=== PATIENT | female | born 1945 | race Caucasian/White ===

== ENCOUNTER 2017-01-13 13:03 | Outpatient (CLI) | payer MEDICARE ==
--- NOTE | 2017-01-14 13:54 | DEXA Report ---
DEXA SCAN: 01/13/2017 CLINICAL INDICATION: Postmenopausal. TECHNIQUE: Dual energy x-ray absorptiometry (DXA) was performed on a [employer] system. Regions measured are the AP spine, femoral neck, and, if needed, forearm. COMPARISON: None. In accordance with the International Society for Clinical Densitometry (ISCD) guidelines, data from previous exams may be reanalyzed using current recommendations and techniques. This is done to allow a more accurate basis for comparison with the current study. FINDINGS: The data for the lumbar spine is as follows: REGION BMD (g/cm/cm) T-SCORE Z-SCORE L1 0.623 -4.2 -2.2 L2 0.918 -2.4 -0.3 L3 0.954 -2.1 0.0 L4 1.102 -0.8 1.2 TOTAL 0.908 -2.3 -0.2 NOTE: All evaluable vertebrae are used for classification. The data for the hip is as follows: REGION BMD (g/cm/cm) T-SCORE Z-SCORE Neck 0.737 -2.2 -0.2 TOTAL 0.761 -2.0 -0.2 NOTE: The femoral neck or total proximal femur, whichever is lowest, is used for classification. * Denotes significant change at the 95% confidence level. Denotes dissimilar scan types or analysis methods. IMPRESSION: THE WHO CLASSIFICATION BASED ON THE INTERNATIONAL REFERENCE STANDARD IS OSTEOPENIA. THE FRACTURE RISK IS INCREASED. RECOMMENDATION: Patients with diagnosis of osteoporosis or osteopenia should have regular bone mineral density assessment. For those eligible for Medicare, routine testing is allowed once every 2 years. Testing frequency can be increased for patients who have rapidly progressing disease or for those who are receiving medical therapy to restore bone mass. COMMENT: World Health Organization (WHO) definitions for osteoporosis and osteopenia: NORMAL BMD: T-score at -1.0 or higher, fracture risk is low. OSTEOPENIA BMD: T-score between -1.0 and -2.5, fracture risk is increased. OSTEOPOROSIS BMD: T-score at -2.5 or lower, fracture risk high. National Osteoporosis Foundation recommends: 1. Obtain adequate dietary calcium (at least 1200 mg per day) and vitamin D (400 -800 international units per day). 2. Participate, as appropriate, in regular weightbearing and muscle- strengthening exercise. 3. Avoid tobacco use and reduce alcohol and caffeine intake. 4. For more detailed information see the website at www.NOF.org. MTDD
== END 2017-01-13 13:04 | disposition home or self-care (01) ==
LOC: DI 13:03
PROVIDERS: ATTEND Internal Medicine
DX: M85.89 Other specified disorders of bone density and structure, multiple sites (principal); Z78.0 Asymptomatic menopausal state
CPT/HCPCS: 77080

== ENCOUNTER 2017-02-12 08:00 | Outpatient (CLI) | payer MEDICARE ==
[2017-02-12 13:27] LABS: ALBUMIN/GLOBULIN RATIO 1.7 (1.0-2.2); BILIRUBIN,TOTAL 1.1 mg/dL (0.2-1.0); CALCIUM 9.2 mg/dL (8.5-10.3); CREATININE 0.6 mg/dL (0.4-1.0); PHOSPHORUS 3.1 mg/dL (2.5-4.6); POTASSIUM 3.7 mmol/L (3.5-5.0); TOTAL PROTEIN 6.7 g/dL (6.7-8.2)
== END 2017-02-12 08:01 | disposition home or self-care (01) ==
LOC: LAB.N 08:00
PROVIDERS: ATTEND Internal Medicine
DX: M81.0 Age-related osteoporosis without current pathological fracture (principal); Z72.89 Other problems related to lifestyle
CPT/HCPCS: 36415; 80053; 82306; 84100; 84443; 86803

== ENCOUNTER 2017-03-10 13:33 | Outpatient (CLI) | payer MEDICARE ==
--- NOTE | 2017-03-11 15:53 | Mammography Report ---
DIGITAL SCREENING MAMMOGRAM: 03/10/2017 CLINICAL INDICATION: A 71-year-old, for screening. COMPARISON: 02/2014, 02/2011, 07/2009, 05/2008. TECHNIQUE: Routine CC and MLO projections were obtained of the breasts. Bilateral laterally exaggera brandon craniocaudal views. FINDINGS: The breasts again demonstrate heterogeneously dense fibroglandular parenchyma bilaterally. Punctate, typically benign calcifications are present. No suspicious masses, clustered microcalcific ations, or regions of architectural distortion are identified. IMPRESSION: BENIGN FINDINGS. RECOMMENDATION: ROUTINE ANNUAL SCREENING UNLESS OTHERWISE CLINICALLY INDICATED. BIRADS CATEGORY 2-BENIGN FINDINGS. STANDARD QUALIFYING STATEMENTS 1. This examination was reviewed with the aid of Computer-Aided Detection (CAD). 2. A negative or benign imaging report should not delay biopsy if clinically suspicious findings are present. Consider surgical consultation if warranted. More than 5% of cancers are not identified by i maging. 3. Dense breasts may obscure an underlying neoplasm. JOB #: [id number] EXT JOB #:[id number]
== END 2017-03-10 13:34 | disposition home or self-care (01) ==
LOC: DI.N 13:33
PROVIDERS: ATTEND Internal Medicine
DX: Z12.31 Encounter for screening mammogram for malignant neoplasm of breast (principal)
CPT/HCPCS: 77067

== ENCOUNTER 2018-05-21 17:15 | Outpatient (CLI) | payer MEDICARE | END 2018-05-21 17:16 | disposition critical access hospital (66) | LOC: EMS 17:15 | PROVIDERS: ATTEND Surgery | DX: R06.02 Shortness of breath (principal); R42 Dizziness and giddiness; L29.9 Pruritus, unspecified; W57.XXXA Bitten or stung by nonvenomous insect and other nonvenomous arthropods, initial encounter; Y92.007 Garden or yard of unspecified non-institutional (private) residence as the place of occurrence of the external cause | CPT/HCPCS: A0425; A0433 ==

== ENCOUNTER 2018-05-21 17:29 | Emergency (ER) | payer MEDICARE ==
[2018-05-21] MEDS ORDERED: SODIUM CHLORIDE 0.9% 1,000 ML IV ONE (17:39)
[2018-05-21] MEDS ORDERED: diphenhydrAMINE INJ 50 MG/ML VIAL IVP STA (17:39)
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
[2018-05-21 18:23] LABS: BASOPHILS % (AUTO) 0.5 %; EOSINOPHILS # (AUTO) 0.1 10^3/uL (0.0-0.7); EOSINOPHILS % (AUTO) 0.7 %; LYMPHOCYTES # (AUTO) 2.3 10^3/uL (1.5-3.5); LYMPHOCYTES % (AUTO) 29.3 %; MEAN CORPUSCULAR HEMOGLOBIN 33.9 pg (27.0-31.0); MEAN CORPUSCULAR HGB CONC 34.6 g/dL (32.0-36.0); MEAN CORPUSCULAR VOLUME 98.1 fL (81.0-99.0); MEAN PLATELET VOLUME 7.3 fL (7.9-10.8); MONOCYTES # (AUTO) 0.2 10^3/uL (0.0-1.0); MONOCYTES % (AUTO) 2.1 %; NEUTROPHILS # (AUTO) 5.3 10^3/uL (1.5-6.6); NEUTROPHILS % (AUTO) 67.4 %; PLT - PLATELET COUNT 276 10^3/uL (130-450); RED BLOOD COUNT 3.24 10^6/uL (4.20-5.40); RED CELL DISTRIBUTION WIDTH 13.6 % (12.0-15.0); WHITE BLOOD COUNT 7.8 x10^3/uL (4.8-10.8)
[2018-05-21 18:45] LABS: ALBUMIN 3.5 g/dL (3.2-5.5); ALBUMIN/GLOBULIN RATIO 1.9 (1.0-2.2); BILIRUBIN,TOTAL 0.3 mg/dL (0.2-1.0); CALCIUM 8.1 mg/dL (8.5-10.3); CREATININE 0.9 mg/dL (0.4-1.0); TOTAL PROTEIN 5.3 g/dL (6.7-8.2)
[2018-05-21 20:39] VITALS: BP 132/78
== END 2018-05-21 21:30 | disposition home or self-care (01) ==
LOC: EDUNIT# → ED 17:29
DX: T63.441A Toxic effect of venom of bees, accidental (unintentional), initial encounter (principal); I45.81 Long QT syndrome; Z96.659 Presence of unspecified artificial knee joint
CPT/HCPCS: 36415; 80053; 83690; 85025; 93005; 96361; 96374; 99284; 99291; J1200

== ENCOUNTER 2018-08-25 08:00 | Outpatient (CLI) | payer MEDICARE ==
[2018-08-25 12:44] LABS: BASOPHILS % (AUTO) 1.1 %; EOSINOPHILS # (AUTO) 0.3 10^3/uL (0.0-0.7); EOSINOPHILS % (AUTO) 8.7 %; HGB - HEMOGLOBIN 12.1 g/dL (12.0-16.0); LYMPHOCYTES # (AUTO) 1.1 10^3/uL (1.5-3.5); MEAN CORPUSCULAR HEMOGLOBIN 32.6 pg (27.0-31.0); MEAN CORPUSCULAR HGB CONC 33.7 g/dL (32.0-36.0); MEAN CORPUSCULAR VOLUME 96.7 fL (81.0-99.0); MEAN PLATELET VOLUME 7.3 fL (7.9-10.8); MEAN RETIC VALUE 125.4; MONOCYTES # (AUTO) 0.5 10^3/uL (0.0-1.0); MONOCYTES % (AUTO) 13.3 %; NEUTROPHILS # (AUTO) 1.6 10^3/uL (1.5-6.6); NEUTROPHILS % (AUTO) 46.9 %; PLT - PLATELET COUNT 397 10^3/uL (130-450); RED CELL DISTRIBUTION WIDTH 14.1 % (12.0-15.0); WHITE BLOOD COUNT 3.5 x10^3/uL (4.8-10.8)
[2018-08-25 13:18] LABS: ALKALINE PHOSPHATASE 57 IU/L (42-121); ALT ALANINE AMINOTRANSFERASE 16 IU/L (10-60); AST ASPARTATE AMINOTRANSFERASE 22 IU/L (10-42); BILIRUBIN,TOTAL 0.7 mg/dL (0.2-1.0); BUN - BLOOD UREA NITROGEN 15 mg/dL (6-20); CALCIUM 8.8 mg/dL (8.5-10.3); CARBON DIOXIDE - CO2 28 mmol/L (21-32); CHLORIDE 104 mmol/L (101-111); CREATININE 0.6 mg/dL (0.4-1.0); GFR - MDRD 98 (>89); GLUCOSE 86 mg/dL (70-100); MAGNESIUM 2.1 mg/dL (1.7-2.8); SODIUM 137 mmol/L (135-145); TOTAL PROTEIN 6.3 g/dL (6.7-8.2)
[2018-08-25 13:19] LABS: ALBUMIN/GLOBULIN RATIO 1.7 (1.0-2.2); CHOL/HDL RATIO 2.1 (<4.4); CHOLESTEROL 190 mg/dL; HDL CHOLESTEROL 89 mg/dL; LDL CHOLESTEROL,CALCULATED 89 mg/dL; VLDL CHOLESTEROL 12 mg/dL
[2018-08-25 13:25] LABS: FOLATE 11.2 ng/mL (5.90 - >24.8)
== END 2018-08-25 23:59 | disposition home or self-care (01) ==
LOC: LAB.N 08:00
PROVIDERS: ATTEND Physician Assistant Medical
DX: E55.9 Vitamin D deficiency, unspecified (principal); D64.9 Anemia, unspecified; Z79.899 Other long term (current) drug therapy
CPT/HCPCS: 36415; 80053; 80061; 82306; 82607; 82728; 82746; 83010; 83721; 83735; 85025; 85044; 86880

== ENCOUNTER 2019-05-11 13:39 | Outpatient (CLI) | payer MEDICARE ==
--- NOTE | 2019-05-11 16:50 | Mammography Report ---
Reason: SCREENING MAMMO Procedure Date: 05/11/2019 Accession Number: [id number] / [id number] Procedure: MGN - Screening Mammo Dig Bilat CPT Code: FULL RESULT: EXAM: Screening Mammo Dig Bilat DATE: 05/11/2019 1:56 PM CLINICAL HISTORY: Screening TECHNIQUE: (B) - Bilateral CC and MLO views were obtained. COMPARISON: 03/10/2017, 02/08/2014 PARENCHYMAL PATTERN: (VD) - The breasts demonstrate extremely dense parenchyma bilaterally, limiting the sensitivity of mammography. FINDINGS: There are no suspicious masses, calcifications, or areas of distortion. IMPRESSION: Negative examination. BI-RADS category 1. RECOMMENDATION: (ANNUAL) - Recommend routine annual screening mammography. BI-RADS CATEGORY: (1) - Negative. STANDARD QUALIFYING STATEMENTS: 1. This examination was not reviewed with the aid of Computer-Aided Detection (CAD). 2. A negative or benign imaging report should not preclude biopsy if clinically suspicious findings are present. 3. Dense breasts may obscure an underlying neoplasm. 4. This examination was reviewed without the aid of 3D breast imaging (tomosynthesis).
== END 2019-05-11 13:40 | disposition home or self-care (01) ==
LOC: DI.N 13:39
DX: Z12.31 Encounter for screening mammogram for malignant neoplasm of breast (principal)
CPT/HCPCS: 77067

== ENCOUNTER 2019-09-01 10:14 | Day surgery (SDC) | payer MEDICARE ==
[2019-09-01] MEDS ORDERED: fentaNYL 250 MCG/5 ML VIAL IVP ONE (10:15)
[2019-09-01] MEDS ORDERED: MIDAZOLAM 2 MG/2 ML VIAL IVP ONE (10:15)
[2019-09-01] MEDS ORDERED: LACTATED RINGERS 1,000 ML IV ONE (10:56)
[2019-09-01 14:20] VITALS: BP 140/116
== END 2019-09-01 10:15 | disposition home or self-care (01) ==
LOC: SDS 10:14
PROVIDERS: ATTEND Surgery
PROC: 0DJD8ZZ Inspection of Lower Intestinal Tract, Via Natural or Artificial Opening Endoscopic (ICD-10-PCS; principal; 2019-09-01 12:30)
DX: Z12.11 Encounter for screening for malignant neoplasm of colon (principal); N39.41 Urge incontinence; M81.8 Other osteoporosis without current pathological fracture
CPT/HCPCS: G0121; J3010; J7120

== ENCOUNTER 2019-09-09 11:51 | Outpatient (CLI) | payer MEDICARE ==
[2019-09-09 18:48] LABS: BASOPHILS % (AUTO) 0.6 %; EOSINOPHILS # (AUTO) 0.2 10^3/uL (0.0-0.7); EOSINOPHILS % (AUTO) 3.2 %; HGB - HEMOGLOBIN 12.5 g/dL (12.0-16.0); LYMPHOCYTES # (AUTO) 1.7 10^3/uL (1.5-3.5); LYMPHOCYTES % (AUTO) 25.1 %; MEAN CORPUSCULAR HEMOGLOBIN 30.9 pg (27.0-31.0); MEAN CORPUSCULAR HGB CONC 31.7 g/dL (32.0-36.0); MEAN CORPUSCULAR VOLUME 97.5 fL (81.0-99.0); MEAN PLATELET VOLUME 9.4 fL (7.9-10.8); MONOCYTES # (AUTO) 0.6 10^3/uL (0.0-1.0); MONOCYTES % (AUTO) 9.2 %; NEUTROPHILS # (AUTO) 4.2 10^3/uL (1.5-6.6); NEUTROPHILS % (AUTO) 61.6 %; PLT - PLATELET COUNT 380 10^3/uL (130-450); RED BLOOD COUNT 4.04 10^6/uL (4.20-5.40); RED CELL DISTRIBUTION WIDTH 13.6 % (12.0-15.0); WHITE BLOOD COUNT 6.8 x10^3/uL (4.8-10.8)
[2019-09-09 19:15] LABS: ALBUMIN 4.1 g/dL (3.2-5.5); ALBUMIN/GLOBULIN RATIO 1.6 (1.0-2.2); ALKALINE PHOSPHATASE 67 IU/L (42-121); ALT ALANINE AMINOTRANSFERASE 29 IU/L (10-60); AST ASPARTATE AMINOTRANSFERASE 24 IU/L (10-42); BILIRUBIN,TOTAL 0.7 mg/dL (0.2-1.0); BUN - BLOOD UREA NITROGEN 19 mg/dL (6-20); CALCIUM 9.1 mg/dL (8.5-10.3); CARBON DIOXIDE - CO2 27 mmol/L (21-32); CHLORIDE 102 mmol/L (101-111); CHOL/HDL RATIO 2.5 (<4.4); CHOLESTEROL 171 mg/dL; CREATININE 0.7 mg/dL (0.4-1.0); GFR - MDRD 82 (>89); GLUCOSE 84 mg/dL (70-100); HDL CHOLESTEROL 68 mg/dL; LDL CHOLESTEROL,CALCULATED 93 mg/dL; LDL/HDL RATIO 1.4 (<4.4); SODIUM 140 mmol/L (135-145); TOTAL PROTEIN 6.7 g/dL (6.7-8.2); VLDL CHOLESTEROL 10 mg/dL
== END 2019-09-09 23:59 | disposition home or self-care (01) ==
LOC: LAB.N 11:51
PROVIDERS: ATTEND Nurse Practitioner
DX: M85.80 Other specified disorders of bone density and structure, unspecified site (principal); Z79.899 Other long term (current) drug therapy; E87.6 Hypokalemia; D64.9 Anemia, unspecified; E55.9 Vitamin D deficiency, unspecified; F33.2 Major depressive disorder, recurrent severe without psychotic features; M81.8 Other osteoporosis without current pathological fracture
CPT/HCPCS: 36415; 80053; 80061; 82306; 82607; 83721; 84443; 85025

== ENCOUNTER 2020-06-25 13:27 | Outpatient (CLI) | payer MEDICARE ==
--- NOTE | 2020-06-25 15:50 | XRAY Report ---
PROCEDURE: Lumbar Spine 2 View INDICATIONS: LOWER BACK PX TECHNIQUE: 2 views of the lumbar spine were acquired. COMPARISON: None. FINDINGS: Bones: 5 [id number] vertebrae are present. Loss of the expected lordosis of the lumbar spine. N o significant scoliosis. Mild compression fracture at T12. Moderate L2 compression fracture. Mild L3 compression fracture. Moderate degenerative change. No suspicious bony lesions. Bones appear osteope annie. Soft tissues: Overlying bowel gas pattern is normal. No suspicious soft tissue calcifications. Prom inent stool the visualized colon. IMPRESSION: Age indeterminate compression fractures at T12, L2, and L3. Reviewed by: Luis Zuñiga MD on 06/25/2020 3:49 PM PST Approved by: Luis Zuñiga MD on 06/25/2020 3:49 PM PST Station ID: [id number]
== END 2020-06-25 23:59 | disposition home or self-care (01) ==
LOC: DI.N 13:27
PROVIDERS: ATTEND Family Medicine
DX: M48.56XA Collapsed vertebra, not elsewhere classified, lumbar region, initial encounter for fracture (principal); M48.54XA Collapsed vertebra, not elsewhere classified, thoracic region, initial encounter for fracture

== ENCOUNTER 2020-08-13 10:01 | Outpatient (CLI) | payer MEDICARE ==
--- NOTE | 2020-08-13 11:22 | XRAY Report ---
PROCEDURE: Hip 1 View RT INDICATIONS: RIGHT HIP PAIN TECHNIQUE: 3 views of the hip were acquired. COMPARISON: None. FINDINGS: No acute fracture. Chronic appearing fracture of the left inferior pubic ramus.. Mild right hip joint degeneration. Lumbar spondylosis and facet arthropathy. Postsurgical changes related to left femur i ntramedullary ирина fixation. Scattered subchondral sclerosis and spurring. Subcentimeter sclerotic fo cus projecting in the intertrochanteric region may represent low-grade chondroid lesion such as encho ndroma, technically nonspecific. Soft tissues: No suspicious soft tissue calcifications or masses. IMPRESSION: Mild right hip joint degeneration. Prominent degenerative spurring. Lumbar spondylosis and facet arthropathy. Nonspecific subcentimeter sclerotic focus projecting in the intertrochanteric region of the right fem ur, statistically represents enchondroma although technically nonspecific and could be surveilled wit h serial radiographs as clinically necessary. Reviewed by: Lucio Atwood MD on 08/13/2020 11:21 AM PST Approved by: Lucio Atwood MD on 08/13/2020 11:21 AM PST Station ID: [id number]
== END 2020-08-13 23:59 | disposition home or self-care (01) ==
LOC: DI.WCP 10:01
PROVIDERS: ATTEND Family Medicine
DX: M16.11 Unilateral primary osteoarthritis, right hip (principal); M47.816 Spondylosis without myelopathy or radiculopathy, lumbar region

== ENCOUNTER 2020-08-17 07:33 | Outpatient (CLI) | payer MEDICARE ==
[2020-08-17 12:28] LABS: BASOPHILS # (AUTO) 0.1 10^3/uL (0.0-0.1); BASOPHILS % (AUTO) 1.1 %; EOSINOPHILS # (AUTO) 0.3 10^3/uL (0.0-0.7); EOSINOPHILS % (AUTO) 6.8 %; HGB - HEMOGLOBIN 12.6 g/dL (12.0-16.0); LYMPHOCYTES # (AUTO) 1.2 10^3/uL (1.5-3.5); LYMPHOCYTES % (AUTO) 25.3 %; MEAN CORPUSCULAR HEMOGLOBIN 32.5 pg (27.0-31.0); MEAN CORPUSCULAR HGB CONC 33.2 g/dL (32.0-36.0); MEAN CORPUSCULAR VOLUME 97.9 fL (81.0-99.0); MEAN PLATELET VOLUME 9.4 fL (7.9-10.8); MONOCYTES # (AUTO) 0.7 10^3/uL (0.0-1.0); MONOCYTES % (AUTO) 14.7 %; NEUTROPHILS # (AUTO) 2.4 10^3/uL (1.5-6.6); NEUTROPHILS % (AUTO) 51.9 %; PLT - PLATELET COUNT 313 10^3/uL (130-450); RED BLOOD COUNT 3.88 10^6/uL (4.20-5.40); RED CELL DISTRIBUTION WIDTH 13.8 % (12.0-15.0); WHITE BLOOD COUNT 4.6 x10^3/uL (4.8-10.8)
[2020-08-17 12:56] LABS: ALBUMIN 3.9 g/dL (3.2-5.5); ALBUMIN/GLOBULIN RATIO 1.6 (1.0-2.2); ALKALINE PHOSPHATASE 71 IU/L (42-121); ALT ALANINE AMINOTRANSFERASE 22 IU/L (10-60); AST ASPARTATE AMINOTRANSFERASE 23 IU/L (10-42); BUN - BLOOD UREA NITROGEN 23 mg/dL (6-20); CARBON DIOXIDE - CO2 27 mmol/L (21-32); CHLORIDE 101 mmol/L (101-111); CHOL/HDL RATIO 2.3 (<4.4); CHOLESTEROL 182 mg/dL; CREATININE 0.7 mg/dL (0.4-1.0); GFR - MDRD 82 (>89); GLUCOSE 79 mg/dL (70-100); HDL CHOLESTEROL 78 mg/dL; LDL CHOLESTEROL,CALCULATED 95 mg/dL; LDL/HDL RATIO 1.2 (<4.4); POTASSIUM 4.2 mmol/L (3.5-5.0); SODIUM 140 mmol/L (135-145); TOTAL PROTEIN 6.3 g/dL (6.7-8.2); TRIGLYCERIDES 45 mg/dL; VLDL CHOLESTEROL 9 mg/dL
[2020-08-17 13:09] LABS: THYROID STIMULATING HORMONE 2.84 uIU/mL (0.34-5.60)
== END 2020-08-17 23:59 | disposition home or self-care (01) ==
LOC: LAB.WCP 07:33
PROVIDERS: ATTEND Family Medicine
DX: Z00.00 Encounter for general adult medical examination without abnormal findings (principal); M85.80 Other specified disorders of bone density and structure, unspecified site
CPT/HCPCS: 36415; 80053; 80061; 82306; 83721; 84443; 85025

== ENCOUNTER 2020-09-04 13:52 | Outpatient (CLI) | payer MEDICARE ==
--- NOTE | 2020-09-04 17:13 | DEXA Report ---
PROCEDURE: Dexa Spine and/or Hip INDICATIONS: DISORDERS OF BONE DENSITY AND STRUCTURE TECHNIQUE: Dual energy x-ray absorptiometry (DXA) was performed on a [employer] System. Regions measur ed are the AP Spine, femoral neck, and if needed forearm. COMPARISON: None. FINDINGS: Lumbar Spine: Bone Mineral Density 0.827 g/cm/cm,T score -2.9, osteoporosis Left Hip: Bone Mineral Density 0.737 g/cm/cm,T score -2.2, severe osteopenia Left Femoral Neck: Bone Mineral Density 0.698 g/cm/cm, T score -2.4, related osteoporosis (T score greater or equal to -1.0: NORMAL) (T score from -1.1 to -2.4: OSTEOPENIA) (T score less than or equal to -2.5 to: OSTEOPOROSIS) Impression: Osteoporosis within the lumbar spine as well as borderline osteoporosis in the left femor al neck. Patients with diagnosis of osteoporosis or osteopenia should have regular bone mineral density assess ment. For those eligible for Medicare, routine testing is allowed once every 2 years. Testing frequ ency can be increased for patients who have rapidly progressing disease or for those who are receivin g medical therapy to restore bone mass. Reviewed by: Jordyn Nunez MD on 09/04/2020 5:12 PM PST Approved by: Jordyn Nunez MD on 09/04/2020 5:12 PM PST Station ID: [id number]
== END 2020-09-04 13:53 | disposition home or self-care (01) ==
LOC: DI 13:52
PROVIDERS: ATTEND Family Medicine
DX: M81.0 Age-related osteoporosis without current pathological fracture (principal)

== ENCOUNTER 2020-09-10 07:35 | Outpatient (CLI) | payer MEDICARE ==
--- NOTE | 2020-09-10 16:23 | XRAY Report ---
PROCEDURE: Ribs 2 View RT INDICATIONS: COSTAL CHONDRITIS TECHNIQUE: 2 views of the right ribs were acquired. COMPARISON: None FINDINGS: Surgical changes and devices: None. Bones and chest wall: No fractures or dislocations. No suspicious bony lesions. Overlying soft tis sues appear unremarkable. Lungs and pleura: The visualized lung appears clear. No pleural effusions or pneumothorax are visib le. IMPRESSION: No visualized acute fracture or dislocation. However, occult injury cannot be excluded. Recommend pretty rt interval imaging follow-up in 7-10 days as clinically indicated for additional evaluation. Reviewed by: Jordyn Nunez MD on 09/10/2020 4:22 PM PST Approved by: Jordyn Nunez MD on 09/10/2020 4:22 PM PST Station ID: [id number]
== END 2020-09-10 23:59 | disposition home or self-care (01) ==
LOC: DI.N 07:35
PROVIDERS: ATTEND Physician Assistant Medical
DX: M94.0 Chondrocostal junction syndrome [Tietze] (principal)

== ENCOUNTER 2020-12-25 08:00 | Outpatient (CLI) | payer MEDICARE ==
[2020-12-25 17:41] LABS: BASOPHILS # (AUTO) 0.1 10^3/uL (0.0-0.1); BASOPHILS % (AUTO) 0.8 %; EOSINOPHILS # (AUTO) 0.4 10^3/uL (0.0-0.7); EOSINOPHILS % (AUTO) 6.2 %; HCT - HEMATOCRIT 35.6 % (37.0-47.0); HGB - HEMOGLOBIN 11.6 g/dL (12.0-16.0); LYMPHOCYTES # (AUTO) 1.5 10^3/uL (1.5-3.5); LYMPHOCYTES % (AUTO) 23.8 %; MEAN CORPUSCULAR HEMOGLOBIN 31.5 pg (27.0-31.0); MEAN CORPUSCULAR HGB CONC 32.6 g/dL (32.0-36.0); MEAN CORPUSCULAR VOLUME 96.7 fL (81.0-99.0); MEAN PLATELET VOLUME 8.7 fL (7.9-10.8); MONOCYTES # (AUTO) 0.8 10^3/uL (0.0-1.0); MONOCYTES % (AUTO) 12.1 %; NEUTROPHILS # (AUTO) 3.6 10^3/uL (1.5-6.6); NEUTROPHILS % (AUTO) 56.6 %; PLT - PLATELET COUNT 614 10^3/uL (130-450); RED BLOOD COUNT 3.68 10^6/uL (4.20-5.40); RED CELL DISTRIBUTION WIDTH 13.1 % (12.0-15.0); WHITE BLOOD COUNT 6.3 x10^3/uL (4.8-10.8)
[2020-12-25 17:52] LABS: BILIRUBIN,URINE NEGATIVE (NEGATIVE); GLUCOSE, URINE (UA) NEGATIVE (NEGATIVE); KETONES,URINE (UA) NEGATIVE (NEGATIVE); LEUKOCYTE ESTERASE, URINE TRACE (NEGATIVE); NITRITE,URINE NEGATIVE (NEGATIVE); OCCULT BLOOD,URINE LARGE (NEGATIVE); PH,URINE 5.5 PH (5.0-7.5); PROTEIN,URINE 30 mg/dL (NEGATIVE); UROBILINOGEN,URINE 0.2 (NORMAL) E.U./dL (NORMAL)
[2020-12-25 17:55] LABS: CLARITY,URINE CLOUDY (CLEAR)
[2020-12-25 17:59] LABS: CALCIUM 9.1 mg/dL (8.5-10.3); CREATININE 0.6 mg/dL (0.4-1.0); POTASSIUM 4.4 mmol/L (3.5-5.0)
[2020-12-25 18:15] LABS: BACTERIA,URINE Rare /HPF (None Seen); RBC,URINE TNTC /HPF (0-5); SQUAMOUS EPITHELIAL CELL,UR RARE Squamous (<= Few); WBC,URINE 0-3 /HPF (0-5)
== END 2020-12-25 23:59 | disposition home or self-care (01) ==
LOC: LAB.N 08:00
PROVIDERS: ATTEND Physician Assistant Medical
DX: R31.9 Hematuria, unspecified (principal); R82.90 Unspecified abnormal findings in urine
CPT/HCPCS: 36415; 80048; 81001; 85025; 87077; 87086; 87181

== ENCOUNTER 2021-08-14 07:09 | Outpatient (CLI) | payer MEDICARE ==
[2021-08-14 14:05] LABS: BASOPHILS # (AUTO) 0.1 10^3/uL (0.0-0.1); BASOPHILS % (AUTO) 0.7 %; EOSINOPHILS # (AUTO) 0.4 10^3/uL (0.0-0.7); EOSINOPHILS % (AUTO) 5.2 %; HCT - HEMATOCRIT 38.6 % (37.0-47.0); HGB - HEMOGLOBIN 12.6 g/dL (12.0-16.0); LYMPHOCYTES # (AUTO) 1.1 10^3/uL (1.5-3.5); LYMPHOCYTES % (AUTO) 14.3 %; MEAN CORPUSCULAR HEMOGLOBIN 32.6 pg (27.0-31.0); MEAN CORPUSCULAR HGB CONC 32.6 g/dL (32.0-36.0); MEAN CORPUSCULAR VOLUME 99.7 fL (81.0-99.0); MEAN PLATELET VOLUME 9.2 fL (7.9-10.8); MONOCYTES # (AUTO) 0.8 10^3/uL (0.0-1.0); MONOCYTES % (AUTO) 10.7 %; NEUTROPHILS # (AUTO) 5.2 10^3/uL (1.5-6.6); NEUTROPHILS % (AUTO) 68.8 %; PLT - PLATELET COUNT 325 10^3/uL (130-450); RED BLOOD COUNT 3.87 10^6/uL (4.20-5.40); RED CELL DISTRIBUTION WIDTH 14.1 % (12.0-15.0); WHITE BLOOD COUNT 7.6 x10^3/uL (4.8-10.8)
[2021-08-14 14:19] LABS: ALBUMIN 4.1 g/dL (3.2-5.5); ALBUMIN/GLOBULIN RATIO 1.9 (1.0-2.2); ALKALINE PHOSPHATASE 43 IU/L (42-121); ALT ALANINE AMINOTRANSFERASE 16 IU/L (10-60); AST ASPARTATE AMINOTRANSFERASE 19 IU/L (10-42); BUN - BLOOD UREA NITROGEN 24 mg/dL (6-20); CALCIUM 9.3 mg/dL (8.5-10.3); CARBON DIOXIDE - CO2 27 mmol/L (21-32); CHLORIDE 105 mmol/L (101-111); CHOL/HDL RATIO 2.5 (<4.4); CHOLESTEROL 192 mg/dL; CREATININE 0.7 mg/dL (0.4-1.0); GFR - MDRD 82 (>89); GLUCOSE 91 mg/dL (70-100); HDL CHOLESTEROL 78 mg/dL; LDL CHOLESTEROL,CALCULATED 101 mg/dL; LDL/HDL RATIO 1.3 (<4.4); POTASSIUM 4.3 mmol/L (3.5-5.0); SODIUM 140 mmol/L (135-145); TOTAL PROTEIN 6.3 g/dL (6.7-8.2); TRIGLYCERIDES 63 mg/dL; VLDL CHOLESTEROL 13 mg/dL
[2021-08-14 14:31] LABS: THYROID STIMULATING HORMONE 3.76 uIU/mL (0.34-5.60)
== END 2021-08-14 07:10 | disposition home or self-care (01) ==
LOC: LAB.N 07:09
PROVIDERS: ATTEND Family Medicine
DX: Z00.00 Encounter for general adult medical examination without abnormal findings (principal); M85.80 Other specified disorders of bone density and structure, unspecified site; Z79.899 Other long term (current) drug therapy; E87.6 Hypokalemia; D64.9 Anemia, unspecified; E55.9 Vitamin D deficiency, unspecified
CPT/HCPCS: 36415; 80053; 80061; 82306; 83721; 84443; 85025

== ENCOUNTER 2022-01-07 19:59 | Emergency (ER) | payer MEDICARE ==
--- NOTE | 2022-01-07 20:21 | ED Physician Documentation ---
History of Present Illness - Stated complaint Stated Complaint: SENT BY DOC - Chief complaint Chief Complaint: Ext Problem - History obtained from History obtained from: Patient - Additonal information Additional information: Patient with a history of osteoporosis and arthritis presenting for evaluation of a right lower extremity pain and swelling for 1 week. Patient had been working outside and noted discomfort behind her right knee. She then developed swelling which has been persistent over the course of the last week. She denies a history of pulmonary embolism or DVT. She denies trauma.She uses meloxicam for her arthritis which has been helping. She presented to the walk-in clinic and was directed to the emergency department for evaluation of a DVT. She denies fever, unintentional weight loss or gain, chest pain, difficulty breathing, abdominal pain. Review of Systems Constitutional: denies: Fever, Fatigue, Weight Loss Nose: denies: Congestion Cardiac: denies: Chest pain / pressure Respiratory: denies: Dyspnea, Cough GI: denies: Abdominal Pain, Vomiting Skin: reports: Rash Musculoskeletal: reports: Extremity swelling Neurologic: reports: Syncope. denies: Headache PD PAST MEDICAL HISTORY - Past Medical History Past Medical History: Yes Cardiovascular: None Respiratory: None Neuro: None Endocrine/Autoimmune: None GI: None : None HEENT: None Psych: None Musculoskeletal: Osteoarthritis, Osteopenia Derm: None - Past Surgical History Past Surgical History: Yes General: Colonoscopy Ortho: Knee replacement - Present Medications Home Medications: Ambulatory Orders Medication Instructions Recorded Confirmed EPINEPHrine [Epinephrine] 0.3 mg IJ ONCE PRN #1 auto.injct 05/21/18 01/07/22 Alendronate [Fosamax] 70 mg PO ONCE 01/07/22 01/07/22 Meloxicam [Mobic] 15 mg PO DAILY 01/07/22 01/07/22 - Allergies Allergies/Adverse Reactions: Allergies Allergy/AdvReac Type Severity Reaction Status Date / Time bee venom protein (honey bee) Allergy Severe Anaphylaxis Verified 01/07/22 20:08 - Social History Does the pt smoke?: No Smoking Status: Never smoker Does the pt drink ETOH?: No Does the pt have substance abuse?: No - Immunizations Immunizations are current?: Yes Immunizations: TDAP current <10years PD ED PE NORMAL - General General: Alert and oriented X 3, No acute distress, Well developed/nourished - HEENT HEENT: Atraumatic - Cardiac Cardiac: RRR, No murmur, Strong equal pulses - Respiratory Respiratory: No respiratory distress, Clear bilaterally - Abdomen Abdomen: Normal bowel sounds, Soft, Non tender, Non distended - Derm Derm: Warm and dry, Other (Faint erythema to inner right lower leg, warmth compared to the left leg, ) - Extremities Extremities: No tenderness to palpate, Normal ROM s pain, No calf tenderness / cord, Other (Right lower extremity swelling from knee to foot; Compartments of extremity are soft; intact distal pulses). No: No edema - Neuro Neuro: No motor deficit, No sensory deficit, Normal speech Results - Vitals Vitals: Vital Signs - 24 hr 01/07/22 01/07/22 20:03 21:23 Temperature 36.3 C L 36.4 C L Heart Rate 62 61 Respiratory 16 16 Rate Blood Pressure 165/102 H 150/99 H O2 Saturation 98 99 Oxygen O2 Source Room air PD MEDICAL DECISION MAKING - ED course Complexity details: reviewed results, d/w patient ED course: Patient is a 76-year-old female presenting for evaluation of right lower extremity swelling. No bony tenderness on exam.Distal pulses intact. Faint erythema but not overly suggestive of cellulitis.Ultrasound is negative for DVT but does demonstrate the presence of a Carlos's cyst and joint effusion which go along with her symptoms as well. I reviewed these findings with the patient and explained Treatment plan and need for follow-up. Patient had no further questions. Departure - Departure Disposition: 01 Home, Self Care Clinical Impression: Right leg swelling, Effusion, right knee Carlos's cyst of knee Qualifiers: Laterality: right Qualified Code(s): M71.21 - Synovial cyst of popliteal space [Carlos], right knee Condition: Stable Instructions: ED Cyst Carlos Comments: Jaylene - You were evaluated for pain and swelling to your right leg. An ultrasound was done to evaluate for a blood clot or a DVT. The ultrasound did not show a blood clot but it did show a finding called a Carlos's cyst. This is a fluid sac located behind your knee that can leak the fluid causing swelling and pain to the leg. You also have some fluid in your knee joint likely from your arthritis. I recommend using a knee brace To help provide support to the area. Please follow-up with your primary care doctor Or an orthopedic surgeon if you continue to have pain. Please return to the emergency department if your symptoms worsen in any way such as difficulty breathing, chest pain, increased redness, pain or swelling. Discharge Date/Time: 01/07/22 21:29
[2022-01-07 21:24] VITALS: BP 150/99
--- NOTE | 2022-01-07 21:35 | Ultrasound Report ---
PROCEDURE: Duplex Ext Veins Right INDICATIONS: RT LEG SWELLING TECHNIQUE: Real-time imaging, as well as color and pulse Doppler interrogation, were performed of the lower extr emity deep veins from the inguinal ligament to the popliteal fossa. COMPARISON: None. FINDINGS: The deep veins are normally compressible, and free of intraluminal thrombus. Color and pu lse Doppler demonstrate normal phasic intraluminal flow. There is normal augmentation response to di stal compression maneuver. There is a fluid collection in the popliteal fossa measuring approximately 1.5 x 0.8 x 2.2 mm likely representing atelectasis. There is a suprapatellar fluid collection consistent with a small to moderate joint effusion. IMPRESSION: 1. No evidence of deep venous thrombosis in the right lower extremity. 2. Small to moderate knee joint effusion. 3. Small Carlos's cyst. Reviewed by: Joselo Chahal MD on 01/07/2022 9:33 PM PDT Approved by: Joselo Chahal MD on 01/07/2022 9:33 PM PDT Station ID: [id number]
== END 2022-01-07 21:29 | disposition home or self-care (01) ==
LOC: ED 19:59
DX: M71.21 Synovial cyst of popliteal space [Baker], right knee (principal); M25.461 Effusion, right knee; R60.0 Localized edema
CPT/HCPCS: 99282; 99284

== ENCOUNTER 2022-02-06 08:00 | Outpatient (CLI) | payer MEDICARE ==
--- NOTE | 2022-02-06 09:17 | XRAY Report ---
PROCEDURE: Knee 4 View RT INDICATIONS: KNEE PX TECHNIQUE: 4 views of the right knee(s) were acquired. COMPARISON: None. FINDINGS: Bones: There are tricompartmental degenerative changes with tricompartmental osteophytes and medial joint space narrowing. No fractures or dislocations. No suspicious bony lesions. The left knee is v isualized on the AP views and demonstrates changes of prior medial unicompartmental arthroplasty and intramedullary ирина in the distal femur. There is chondrocalcinosis in the lateral joint space. Soft tissues: No joint effusion. No suspicious soft tissue calcifications. IMPRESSION: 1. Degenerative changes of the right knee consistent with osteoarthritis with medial joint space narr owing. 2. No acute abnormality. Reviewed by: Britton Hernandez on 02/06/2022 9:16 AM PDT Approved by: Britton Hernandez on 02/06/2022 9:16 AM PDT Station ID: [id number]
== END 2022-02-06 23:59 | disposition home or self-care (01) ==
LOC: DI.WOS 08:00
PROVIDERS: ATTEND Physician Assistant Surgical
DX: M71.21 Synovial cyst of popliteal space [Baker], right knee (principal); M17.11 Unilateral primary osteoarthritis, right knee

== ENCOUNTER 2022-10-01 07:50 | Outpatient (CLI) | payer MEDICARE ==
[2022-10-01 12:17] LABS: BASOPHILS % (AUTO) 0.7 %; EOSINOPHILS # (AUTO) 0.4 10^3/uL (0.0-0.7); EOSINOPHILS % (AUTO) 5.8 %; HCT - HEMATOCRIT 38.5 % (37.0-47.0); HGB - HEMOGLOBIN 12.1 g/dL (12.0-16.0); LYMPHOCYTES # (AUTO) 1.2 10^3/uL (1.5-3.5); LYMPHOCYTES % (AUTO) 19.8 %; MEAN CORPUSCULAR HEMOGLOBIN 31.3 pg (27.0-31.0); MEAN CORPUSCULAR HGB CONC 31.4 g/dL (32.0-36.0); MEAN CORPUSCULAR VOLUME 99.7 fL (81.0-99.0); MEAN PLATELET VOLUME 9.1 fL (7.9-10.8); MONOCYTES # (AUTO) 0.6 10^3/uL (0.0-1.0); MONOCYTES % (AUTO) 10.3 %; NEUTROPHILS # (AUTO) 3.8 10^3/uL (1.5-6.6); NEUTROPHILS % (AUTO) 62.9 %; PLT - PLATELET COUNT 386 10^3/uL (130-450); RED BLOOD COUNT 3.86 10^6/uL (4.20-5.40); RED CELL DISTRIBUTION WIDTH 13.4 % (12.0-15.0)
[2022-10-01 12:39] LABS: ALBUMIN 4.1 g/dL (3.2-5.5); ALBUMIN/GLOBULIN RATIO 1.8 (1.0-2.2); ALKALINE PHOSPHATASE 43 IU/L (42-121); ALT ALANINE AMINOTRANSFERASE 14 IU/L (10-60); AST ASPARTATE AMINOTRANSFERASE 19 IU/L (10-42); BUN - BLOOD UREA NITROGEN 31 mg/dL (6-20); CARBON DIOXIDE - CO2 26 mmol/L (21-32); CHLORIDE 101 mmol/L (101-111); CHOL/HDL RATIO 2.4 (<4.4); CHOLESTEROL 173 mg/dL; CREATININE 0.8 mg/dL (0.4-1.0); GFR - MDRD 70 (>89); GLUCOSE 84 mg/dL (70-100); HDL CHOLESTEROL 71 mg/dL; LDL CHOLESTEROL,CALCULATED 90 mg/dL; LDL/HDL RATIO 1.3 (<4.4); POTASSIUM 4.3 mmol/L (3.5-5.0); SODIUM 136 mmol/L (135-145); TOTAL PROTEIN 6.4 g/dL (6.7-8.2); TRIGLYCERIDES 58 mg/dL; VLDL CHOLESTEROL 12 mg/dL
[2022-10-01 12:49] LABS: THYROID STIMULATING HORMONE 3.23 uIU/mL (0.34-5.60)
== END 2022-10-01 07:51 | disposition home or self-care (01) ==
LOC: LAB.N 07:50
PROVIDERS: ATTEND Family Medicine
DX: M17.0 Bilateral primary osteoarthritis of knee (principal); M81.8 Other osteoporosis without current pathological fracture
CPT/HCPCS: 36415; 80053; 80061; 83721; 84443; 85025

== ENCOUNTER 2022-11-21 10:44 | Outpatient (CLI) | payer MEDICARE ==
--- NOTE | 2022-11-21 11:47 | DEXA Report ---
PROCEDURE: Dexa Spine and/or Hip INDICATIONS: POST MENOPAUSAL TECHNIQUE: Dual energy x-ray absorptiometry (DXA) was performed on a [employer] System. Regions measur ed are the AP Spine, femoral neck, and if needed forearm. COMPARISON: 09/04/2020, 01/13/2017 FINDINGS: Lumbar Spine: Bone Mineral Density 0.911 g/cm/cm,T score -2.2, statistically improved. Left Femoral Neck: Bone Mineral Density 0.768 g/cm/cm, T score -1.9, osteopenia. Left Hip: Bone Mineral Density 0.768 g/cm/cm,T score -2.3, stable from prior. (T score greater or equal to -1.0: NORMAL) (T score from -1.1 to -2.4: OSTEOPENIA) (T score less than or equal to -2.5 to: OSTEOPOROSIS) Impression: Osteopenia. Statistically stable bone mineral density of the left hip. Statistically improved lumbar spine bone mineral density. Patients with diagnosis of osteoporosis or osteopenia should have regular bone mineral density assess ment. For those eligible for Medicare, routine testing is allowed once every 2 years. Testing frequ ency can be increased for patients who have rapidly progressing disease or for those who are receivin g medical therapy to restore bone mass. Reviewed by: Franklyn Hill on 11/21/2022 11:46 AM PDT Approved by: Franklyn Hill on 11/21/2022 11:46 AM PDT Station ID: [id number]
== END 2022-11-21 10:45 | disposition home or self-care (01) ==
LOC: DI 10:44
PROVIDERS: ATTEND Family Medicine
DX: M85.89 Other specified disorders of bone density and structure, multiple sites (principal); Z78.0 Asymptomatic menopausal state

== ENCOUNTER 2022-11-21 11:44 | Outpatient (CLI) | payer MEDICARE ==
--- NOTE | 2022-11-24 10:59 | Mammography Report ---
BILATERAL DIGITAL SCREENING MAMMOGRAM 3D/2D: 11/21/2022 CLINICAL: Routine screening. Comparison is made to exams dated: 05/11/2019 mammogram, 03/10/2017 mammogram, and 02/08/2014 mammogram - [facility]. Both breasts are almost entirely fatty (category a/<25% glandular tissue). There are benign vascular calcifications in both breasts. No significant masses, calcifications, or other findings are seen in either breast. There has been no significant interval change. IMPRESSION: BENIGN There is no mammographic evidence of malignancy. A 1 year screening mammogram is recommended. Based on the Tyrer Cuzick model (a risk assessment model) the patients lifetime risk is 1.7% and her 10 year risk is 0.0%. According to the ACR, ACS, and NCCN guidelines, an annual breast MRI exam naeven g with mammogram is recommended if the patients lifetime risk is 20% or greater. This exam was interpreted at Station ID: [id number]. NOTE: For mammograms, a report in lay terms will be sent to the patient. Approximately 15% of breast malignancies will not be visualized mammographically. In the management of a palpable breast mass, a negative mammogram must not discourage biopsy of a clinically suspicious lesion. Electronically Signed By: Britton vallejo/trinity:11/21/2022 20:34:01 letter sent: No_Letter ACR BI-RADS Category 2: Benign Finding(s) 3342F PARENCHYMAL PATTERN: (F) - The breast(s) demonstrate(s) diffuse fatty replacement. BI-RADS CATEGORY: (2) - 2 Mammogram [id number] 1 year screening LATERALITY: (B)
== END 2022-11-21 11:45 | disposition home or self-care (01) ==
LOC: DI 11:44
DX: Z12.31 Encounter for screening mammogram for malignant neoplasm of breast (principal)

== ENCOUNTER 2022-12-09 08:00 | Outpatient (CLI) | payer MEDICARE ==
--- NOTE | 2022-12-09 15:00 | XRAY Report ---
PROCEDURE: Knee 4 View RT INDICATIONS: RIGHT KNEE PAIN TECHNIQUE: 4 views of the right knee(s) were acquired. COMPARISON: None. FINDINGS: Bones: There is bony erosion of the medial tibial plateau. Definite osteophytes and possible narrowi ng of joint space. This is tricompartmental. Soft tissues: Mild knee joint effusion. No suspicious soft tissue calcifications or masses. IMPRESSION: Bony erosion of the medial tibial plateau, probably iatrogenic. Correlate with history. Tricompartmental Kellgren-Anton scale of osteoarthritis: Grade 1-2: mild osteoarthritis. Reviewed by: Franklyn Hill on 12/09/2022 2:59 PM PDT Approved by: Franklyn Hill on 12/09/2022 2:59 PM PDT Station ID: [id number]
== END 2022-12-09 23:59 | disposition home or self-care (01) ==
LOC: DI.WOS 08:00
PROVIDERS: ATTEND Physician Assistant Surgical
DX: M17.11 Unilateral primary osteoarthritis, right knee (principal); M85.861 Other specified disorders of bone density and structure, right lower leg

== ENCOUNTER 2023-08-05 07:05 | Outpatient (CLI) | payer MEDICARE ==
[2023-08-05 11:50] LABS: BASOPHILS # (AUTO) 0.1 10^3/uL (0.0-0.1); BASOPHILS % (AUTO) 0.6 %; EOSINOPHILS # (AUTO) 0.4 10^3/uL (0.0-0.7); EOSINOPHILS % (AUTO) 4.9 %; HCT - HEMATOCRIT 35.5 % (37.0-47.0); HGB - HEMOGLOBIN 11.2 g/dL (12.0-16.0); LYMPHOCYTES # (AUTO) 1.4 10^3/uL (1.5-3.5); LYMPHOCYTES % (AUTO) 15.3 %; MEAN CORPUSCULAR HEMOGLOBIN 30.9 pg (27.0-31.0); MEAN CORPUSCULAR HGB CONC 31.5 g/dL (32.0-36.0); MEAN CORPUSCULAR VOLUME 98.1 fL (81.0-99.0); MONOCYTES # (AUTO) 0.8 10^3/uL (0.0-1.0); MONOCYTES % (AUTO) 8.7 %; NEUTROPHILS # (AUTO) 6.2 10^3/uL (1.5-6.6); NEUTROPHILS % (AUTO) 69.9 %; PLT - PLATELET COUNT 449 10^3/uL (130-450); RED BLOOD COUNT 3.62 10^6/uL (4.20-5.40); RED CELL DISTRIBUTION WIDTH 13.3 % (12.0-15.0); WHITE BLOOD COUNT 8.8 x10^3/uL (4.8-10.8)
[2023-08-05 12:01] LABS: BILIRUBIN,URINE NEGATIVE (NEGATIVE); GLUCOSE, URINE (UA) NEGATIVE (NEGATIVE); KETONES,URINE (UA) NEGATIVE (NEGATIVE); LEUKOCYTE ESTERASE, URINE NEGATIVE (NEGATIVE); NITRITE,URINE NEGATIVE (NEGATIVE); OCCULT BLOOD,URINE NEGATIVE (NEGATIVE); PROTEIN,URINE NEGATIVE (NEGATIVE); UROBILINOGEN,URINE 0.2 (NORMAL) E.U./dL (NORMAL)
[2023-08-05 12:02] LABS: CLARITY,URINE CLEAR (CLEAR)
[2023-08-05 12:18] LABS: ALBUMIN 3.8 g/dL (3.2-5.5); ALBUMIN/GLOBULIN RATIO 1.8 (1.0-2.2); BILIRUBIN,TOTAL 0.3 mg/dL (0.2-1.0); CREATININE 0.7 mg/dL (0.6-1.3); POTASSIUM 4.4 mmol/L (3.5-4.5); TOTAL PROTEIN 5.9 g/dL (6.4-8.9)
[2023-08-05 12:43] LABS: THYROID STIMULATING HORMONE 3.89 uIU/mL (0.34-5.60)
== END 2023-08-05 07:06 | disposition home or self-care (01) ==
LOC: LAB.N 07:05
PROVIDERS: ATTEND Nurse Practitioner
DX: R53.83 Other fatigue (principal)
CPT/HCPCS: 36415; 80053; 81003; 82607; 84443; 85025

== ENCOUNTER 2023-08-17 08:00 | Outpatient (CLI) | payer MEDICARE ==
--- NOTE | 2023-08-17 22:05 | XRAY Report ---
PROCEDURE: Knee 4 View RT INDICATIONS: RIGHT KNEE PAIN TECHNIQUE: 4 views of the knee(s) were acquired. COMPARISON: Right knee radiograph on August 17, 2023 FINDINGS: Bones: No fractures or dislocations. Tiny ossific densities adjacent to the medial tibial plateau wh ich may represent sequela of remote trauma versus accessory ossicles. Similar appearance of osseous e rosion of the medial tibial plateau with osteophytosis and joint space narrowing. No suspicious bony lesions. Mild lateral compartment osteoarthritis with chondrocalcinosis . Moderate patellofemoral c ompartment joint space narrowing and juxta-articular osteophytosis. Limited view of the left knee dem onstrate medial unicondylar arthroplasty and distal femur hardware which is intact with no perihilar lucency to suggest hardware loosening. Left lateral compartment severe joint space narrowing and juxt a-articular osteophytosis. Soft tissues: Small knee joint effusion. No suspicious soft tissue calcifications or masses. IMPRESSION: 1.No acute bony abnormality. 2.Right knee demonstrates similar appearance of tricompartmental osteoarthritis, severe in the medial compartment. 3.Limited views of the left knee demonstrate hardware is intact without complication. Severe osteoart hritis in the lateral compartment. Reviewed by: Yaya Serrano MD on 08/17/2023 10:04 PM PST Approved by: Yaya Serrano MD on 08/17/2023 10:04 PM PST Station ID: [id number]
== END 2023-08-17 23:59 | disposition home or self-care (01) ==
LOC: DI.WOS 08:00
PROVIDERS: ATTEND Orthopaedic Surgery
DX: M17.11 Unilateral primary osteoarthritis, right knee (principal); Z96.651 Presence of right artificial knee joint

== ENCOUNTER 2023-08-17 12:36 | Outpatient (CLI) | payer MEDICARE | END 2023-08-17 23:59 | disposition critical access hospital (66) | LOC: EMS 12:36 | DX: M25.551 Pain in right hip (principal); W01.0XXA Fall on same level from slipping, tripping and stumbling without subsequent striking against object, initial encounter; Y92.003 Bedroom of unspecified non-institutional (private) residence as the place of occurrence of the external cause | CPT/HCPCS: A0425; A0427 ==

== ENCOUNTER 2023-08-17 12:55 | Inpatient (IN) | payer MEDICARE ==
[2023-08-17] MEDS ORDERED: ONDANSETRON 4 MG/2 ML VIAL IVP STA ×2 (13:01→16:11)
--- NOTE | 2023-08-17 13:03 | ED Physician Documentation ---
History of Present Illness - Stated complaint Stated Complaint: HIP INJ - Additonal information Additional information: Patient 77-year-old female presenting to the emergency department with right hip pain. Brought in via EMS. Reports that she stumbled and fell onto her right h ip at home approximately 1 hour ago. Called EMS. No previous injuries to that hip. No previous surgeries. Denies drug allergies. Denies head trauma, loss of consciousness or use of blood thinners. Received 8 mg morphine, 4 mg Zofran prior to arrival. Review of Systems Constitutional: denies: Fever Eyes: denies: Loss of vision Ears: denies: Loss of hearing Nose: denies: Rhinorrhea / runny nose Throat: denies: Dental pain / toothache Cardiac: denies: Chest pain / pressure Respiratory: denies: Dyspnea GI: denies: Abdominal Pain : denies: Dysuria PD PAST MEDICAL HISTORY - Past Medical History Cardiovascular: None Respiratory: None Neuro: None Endocrine/Autoimmune: None GI: None : None HEENT: None Psych: None Musculoskeletal: Osteoarthritis, Osteopenia Derm: None - Past Surgical History Past Surgical History: Yes General: Colonoscopy Ortho: Knee replacement - Present Medications Home Medications: Ambulatory Orders Medication Instructions Recorded Confirmed Ascorbic Acid [Vitamin C] 500 mg PO DAILY 08/14/23 08/14/23 Cyanocobalamin (Vitamin B-12) 2,500 mcg PO DAILY 08/14/23 08/14/23 [Vitamin B-12] Ferrous Sulfate [Feosol] 325 mg PO DAILY 08/14/23 08/14/23 Meloxicam, Submicronized 10 mg PO DAILY 08/14/23 08/14/23 [Meloxicam] glucosamine HCL [Glucosamine HCl] 1,500 mg PO BID 08/14/23 08/14/23 - Allergies Allergies/Adverse Reactions: Allergies Allergy/AdvReac Type Severity Reaction Status Date / Time bee venom protein (honey bee) Allergy Severe Anaphylaxis Verified 08/17/23 13:01 - Social History Does the pt smoke?: No Smoking Status: Never smoker Does the pt drink ETOH?: No Does the pt have substance abuse?: No - Immunizations Immunizations are current?: Yes Immunizations: TDAP current <10years PD ED PE NORMAL - General General: Alert and oriented X 3, Other (Patient appears uncomfortable) - HEENT HEENT: Atraumatic, PERRL, EOMI, Ears normal, Moist mucous membranes - Neck Neck: Supple, no meningeal sign, No bony TTP, No adenopathy, Thyroid normal - Cardiac Cardiac: RRR, No gallop, Strong equal pulses - Respiratory Respiratory: No respiratory distress, Clear bilaterally - Abdomen Abdomen: Normal bowel sounds, Non tender - Female Female : Deferred - Rectal Rectal: Deferred - Back Back: No CVA TTP, No spinal TTP - Derm Derm: Normal color - Extremities Extremities: Other (Tenderness to palpation to the right hip. Patient is keeping her right knee in a slightly flexed position. DP PT pulses palpable, normal capillary refill and sensation distal to site of injury.) Results - Vitals Vitals: Vital Signs - 24 hr 08/17/23 08/17/23 08/17/23 13:01 13:05 15:05 Temperature 36.1 C L 36.5 C Heart Rate 62 62 60 Respiratory 20 20 13 Rate Blood Pressure 158/69 H 158/69 H 141/70 H O2 Saturation 99 99 96 08/17/23 17:00 Temperature Heart Rate 52 L Respiratory 13 Rate Blood Pressure 126/68 O2 Saturation 96 Oxygen O2 Source Room air - Labs Labs: Laboratory Tests 08/17/23 08/17/23 08/17/23 13:44 13:44 14:13 WBC 10.9 H RBC 3.54 L Hgb 10.9 L Hct 33.8 L MCV 95.5 MCH 30.8 MCHC 32.2 RDW 13.8 Plt Count 372 MPV 8.8 Neut # (Auto) 8.4 H Lymph # (Auto) 1.2 L [place] # (Auto) 1.1 H Eos # (Auto) 0.1 Baso # (Auto) 0.0 Absolute Nucleated RBC 0.00 Nucleated RBC % 0.0 Sodium 139 Potassium 3.6 Chloride 103 Carbon Dioxide 28 Anion Gap 8.0 BUN 24 H Creatinine 0.7 Estimated GFR (MDRD) 81 L Glucose 128 H Calcium 9.0 Total Bilirubin 0.4 AST 15 ALT 11 Alkaline Phosphatase 56 Total Protein 5.8 L Albumin 3.8 Globulin 2.0 L Albumin/Globulin Ratio 1.9 SARS-CoV-2 (PCR) DETECTED A 08/17/23 16:49 WBC 11.3 H RBC 3.31 L Hgb 10.2 L Hct 32.3 L MCV 97.6 MCH 30.8 MCHC 31.6 L RDW 13.7 Plt Count 360 MPV 8.7 Neut # (Auto) 9.6 H Lymph # (Auto) 0.6 L [place] # (Auto) 1.0 Eos # (Auto) 0.0 Baso # (Auto) 0.0 Absolute Nucleated RBC 0.00 Nucleated RBC % 0.0 Sodium Potassium Chloride Carbon Dioxide Anion Gap BUN Creatinine Estimated GFR (MDRD) Glucose Calcium Total Bilirubin AST ALT Alkaline Phosphatase Total Protein Albumin Globulin Albumin/Globulin Ratio SARS-CoV-2 (PCR) PD Medical Decision Making - ED course Complexity details: reviewed results, re-evaluated patient, considered differential, d/w patient, d/w campaign consultant ED course: Patient 77-year-old female presenting to the emergency department with right- sided hip pain. This is after mechanical fall that occurred earlier today. No history of blood thinners. She denied any head trauma or loss of consciousness. Event most consistent with mechanical fall. She was neurovascularly intact in the affected appendage. X-rays demonstrated a comminuted spiral femur fracture. IV access was established and she was given medication for pain control. She did require multiple doses of both fentanyl and hydromorphone for pain control as well as ondansetron and Reglan for nausea control while in the emergency department. Her case was discussed with Dr. Jessee galan as well as Dr. Romano with the hospitalist service. Initial leave the hospital service was consulted for possible admission however they declined this. Patient ultimately admitted under the orthopedic service. Departure - Departure Disposition: [facility] DC/Xfer Clinical Impression: Femur fracture, right, COVID-19 Condition: Stable Discharge Date/Time: 08/17/23 18:00
[2023-08-17] MEDS: fentaNYL 100 MCG/2 ML VIAL IVP PRN ×2 (13:11→13:59)
[2023-08-17 13:58] LABS: BASOPHILS % (AUTO) 0.4 %; EOSINOPHILS # (AUTO) 0.1 10^3/uL (0.0-0.7); EOSINOPHILS % (AUTO) 1.2 %; HCT - HEMATOCRIT 33.8 % (37.0-47.0); HGB - HEMOGLOBIN 10.9 g/dL (12.0-16.0); LYMPHOCYTES # (AUTO) 1.2 10^3/uL (1.5-3.5); LYMPHOCYTES % (AUTO) 11.3 %; MEAN CORPUSCULAR HEMOGLOBIN 30.8 pg (27.0-31.0); MEAN CORPUSCULAR HGB CONC 32.2 g/dL (32.0-36.0); MEAN CORPUSCULAR VOLUME 95.5 fL (81.0-99.0); MEAN PLATELET VOLUME 8.8 fL (7.9-10.8); MONOCYTES # (AUTO) 1.1 10^3/uL (0.0-1.0); MONOCYTES % (AUTO) 9.7 %; NEUTROPHILS # (AUTO) 8.4 10^3/uL (1.5-6.6); NEUTROPHILS % (AUTO) 76.9 %; PLT - PLATELET COUNT 372 10^3/uL (130-450); RED BLOOD COUNT 3.54 10^6/uL (4.20-5.40); RED CELL DISTRIBUTION WIDTH 13.8 % (12.0-15.0); WHITE BLOOD COUNT 10.9 x10^3/uL (4.8-10.8)
--- NOTE | 2023-08-17 14:09 | XRAY Report ---
PROCEDURE: Hip w/Pelvis 2-3V RT INDICATIONS: Fall, concernt rt hip dislocation TECHNIQUE: 2 views of the hip were acquired. COMPARISON: None. FINDINGS: Bones: Moderately displaced and mildly angulated fracture of the right intratrochanteric hip and pro ximal femoral shaft is present. ORIF of the left femur has been performed. No suspicious bony lesions . Soft tissues: No suspicious soft tissue calcifications or masses. IMPRESSION: Right femoral fracture as above. Reviewed by: Sonny Arteaga MD on 08/17/2023 2:07 PM PST Approved by: Sonny Arteaga MD on 08/17/2023 2:07 PM PST Station ID: [id number]
--- NOTE | 2023-08-17 14:16 | XRAY Report ---
PROCEDURE: Chest 1V INDICATIONS: chest pain TECHNIQUE: One view of the chest was acquired. COMPARISON: None. FINDINGS: Surgical changes and devices: None. Lungs and pleura: No pleural effusions or pneumothorax. Lungs are clear. Mediastinum: Mediastinal contours appear normal. Heart size is normal. Bones and chest wall: No suspicious bony lesions. Overlying soft tissues appear unremarkable. IMPRESSION: No acute cardiopulmonary process. Reviewed by: Sonny Arteaga MD on 08/17/2023 2:15 PM PST Approved by: Sonny Arteaga MD on 08/17/2023 2:15 PM [facility] Station ID: [id number]
--- NOTE | 2023-08-17 14:17 | XRAY Report ---
PROCEDURE: Femur 2+V RT INDICATIONS: Fall TECHNIQUE: 2 views of the femur were acquired. COMPARISON: None. FINDINGS: Bones: Moderately displaced and angulated fracture of the right intertrochanteric femur and proximal femoral shaft. No suspicious bony lesions. Soft tissues: No suspicious soft tissue calcifications or masses. IMPRESSION: Proximal femoral fracture.. Reviewed by: Sonny Liu MD on 08/17/2023 2:16 PM PST Approved by: Sonny Liu MD on 08/17/2023 2:16 PM PST Station ID: [id number]
[2023-08-17 14:25] LABS: ALBUMIN 3.8 g/dL (3.2-5.5); ALBUMIN/GLOBULIN RATIO 1.9 (1.0-2.2); BILIRUBIN,TOTAL 0.4 mg/dL (0.2-1.0); CREATININE 0.7 mg/dL (0.6-1.3); POTASSIUM 3.6 mmol/L (3.5-4.5); TOTAL PROTEIN 5.8 g/dL (6.4-8.9)
[2023-08-17] MEDS ORDERED: METOCLOPRAMIDE 10 MG/2 ML VIAL IVP STA (14:40)
[2023-08-17] MEDS ORDERED: HYDROmorphone 0.5 MG/0.5 ML SYRINGE IVP STA (14:42)
[2023-08-17] MEDS ORDERED: DEXAMETHASONE 4 MG/ML VIAL ONE (15:12)
[2023-08-17] MEDS ORDERED: ROPIVACAINE 0.5% PF 20 ML VIAL ONE (15:12)
--- NOTE | 2023-08-17 15:16 | HISTORY & PHYSICAL EXAMINATION ---
HPI - History Obtained From History obtained from: Patient Exam limitations: Clinical condition - History of Present Illness HPI Comment/Other: This is a 77-year-old woman who fell earlier today at home. She was standing on the carpet, turned and fell. She felt a snap. She had marked pain in her right thigh. She was unable to bear weight on her right leg. She denies chest pain, shortness of breath, dizziness or syncope associated with the fall. She was scheduled to have a right total knee replacement for osteoarthritis of the right knee on 08/19/2023 and was seen at my office this morning for preoperative medical evaluation. She has had previous femoral rodding of her left femur many years ago performed secondary to a skiing accident. She has arthritis to both her hip and knee on the left side as well but is not as symptomatic as the right side She is in relatively good health. She does have a asymptomatic anemia. She is a retired pharmacist and used to work at [employer] PMH/PSH - Past Medical History Cardiovascular: positive: None Respiratory: positive: None Neuro: positive: None Endocrine/Autoimmune: positive: None GI: positive: None : positive: None HEENT: positive: None Psych: positive: None Musculoskeletal: positive: Osteoarthritis, Osteopenia Derm: positive: None MRSA Hx?: No - Past Surgical History General: positive: Colonoscopy Ortho: positive: Knee replacement Social & Family Hx - Social History Does the pt smoke?: No Smoking Status: Never smoker Does the pt drink ETOH?: No Does the pt have substance abuse?: No Meds/Allgy - Home Medications Home Medications: Ambulatory Orders Medication Instructions Recorded Confirmed Ascorbic Acid [Vitamin C] 500 mg PO DAILY 08/14/23 08/14/23 Cyanocobalamin (Vitamin B-12) 2,500 mcg PO DAILY 08/14/23 08/14/23 [Vitamin B-12] Ferrous Sulfate [Feosol] 325 mg PO DAILY 08/14/23 08/14/23 Meloxicam, Submicronized 10 mg PO DAILY 08/14/23 08/14/23 [Meloxicam] glucosamine HCL [Glucosamine HCl] 1,500 mg PO BID 08/14/23 08/14/23 - Allergies Allergies/Adverse Reactions: Allergies Allergy/AdvReac Type Severity Reaction Status Date / Time bee venom protein (honey bee) Allergy Severe Anaphylaxis Verified 08/17/23 13:01 Exam - Vital Signs Vital Signs: Vital Signs x48h Temp Pulse Resp BP Pulse Ox 08/17/23 13:05 36.5 C 62 20 158/69 H 99 08/17/23 13:01 36.1 C L 62 20 158/69 H 99 - Physical Exam General Appearance: positive: Moderate distress Cardiovascular: positive: Regular rate & rhythm Peripheral Pulses: positive: 2+ Skin: positive: Color nml, Warm, Dry Neurologic/Psychiatric: positive: Oriented x3 Comments/Other: Right leg is tender over the right thigh. There is swelling about the right thigh. There is shortening and external rotation deformity of the right leg. The patient is most comfortable with the hip and knee slightly flexed. Her neurovascular is intact grossly to right lower extremity. The skin is intact to right leg Results - Lab Results Fish Bones: 08/17/23 13:44 08/17/23 13:44 Other Lab Results: Lab Results x24hrs 08/17/23 08/17/23 Range/Units 13:44 13:44 WBC 10.9 H (4.8-10.8) x10^3/uL RBC 3.54 L (4.20-5.40) 10^6/uL Hgb 10.9 L (12.0-16.0) g/dL Hct 33.8 L (37.0-47.0) % MCV 95.5 (81.0-99.0) fL MCH 30.8 (27.0-31.0) pg MCHC 32.2 (32.0-36.0) g/dL RDW 13.8 (12.0-15.0) % Plt Count 372 (130-450) 10^3/uL MPV 8.8 (7.9-10.8) fL Neut # (Auto) 8.4 H (1.5-6.6) 10^3/uL Lymph # (Auto) 1.2 L (1.5-3.5) 10^3/uL [place] # (Auto) 1.1 H (0.0-1.0) 10^3/uL Eos # (Auto) 0.1 (0.0-0.7) 10^3/uL Baso # (Auto) 0.0 (0.0-0.1) 10^3/uL Absolute Nucleated RBC 0.00 x10^3/uL Nucleated RBC % 0.0 /100WBC Sodium 139 (135-145) mmol/L Potassium 3.6 (3.5-4.5) mmol/L Chloride 103 (101-111) mmol/L Carbon Dioxide 28 (21-32) mmol/L Anion Gap 8.0 (6-13) BUN 24 H (6-20) mg/dL Creatinine 0.7 (0.6-1.3) mg/dL Estimated GFR (MDRD) 81 L (>89) Glucose 128 H (74-104) mg/dL Calcium 9.0 (8.5-10.3) mg/dL Total Bilirubin 0.4 (0.2-1.0) mg/dL AST 15 (10-42) IU/L ALT 11 (10-60) IU/L Alkaline Phosphatase 56 (42-121) IU/L Total Protein 5.8 L (6.4-8.9) g/dL Albumin 3.8 (3.2-5.5) g/dL Globulin 2.0 L (2.1-4.2) g/dL Albumin/Globulin Ratio 1.9 (1.0-2.2) - Diagnostic Imaging Results Diagnostic Imaging Results: positive: Read independently (Displaced fracture of the proximal femur beginning at the lesser trochanter and extending distally several centimeters. This appears to be a spiral fracture with shortening and some angulation. Impression is displaced femoral shaft fracture right femur, signs of degenerative joint disease to hip) Impression/Plan - Problem List Problem List: Displaced subtrochanteric fracture right femur with osteoarthritis involving both right hip and right knee The plan is for open reduction internal fixation of the right femur most likely using a intramedullary ирина and screws. A CT scan has been ordered of the hip to make certain there is no subtle hip fracture. The patient will be kept n.p.o. after midnight. Currently, there is no availabl e beds but it appears that 1 should be available this afternoon. Her surgery has been tentatively scheduled for tomorrow at 1 PM. I discussed the risk, goals and likelihood of achieving goals, alternatives to surgery and consequences, disability and rarely . Both procedure and general risk were discussed. She is in a lot of pain, therefore, it is not a elective consent but she is in agreement to the surgery as recommended
[2023-08-17] MEDS ORDERED: SODIUM CHLORIDE FLUSH 0.9% 10 ML SYRINGE IVP PRN (16:22)
[2023-08-17] MEDS ORDERED: ACETAMINOPHEN 325 MG TABLET PO PRN (16:22)
[2023-08-17] MEDS ORDERED: oxyCODONE 5 MG TABLET PO PRN (16:22)
--- NOTE | 2023-08-17 16:26 | CT Report ---
PROCEDURE: Pelvis WO INDICATIONS: Ortho Requests, evaluation for hip fracture TECHNIQUE: Noncontrast 3 mm axial sections acquired through the bony pelvis, with coronal and sagittal reformatt ing. For radiation dose reduction, the following was used: automated exposure control, adjustment of mA and/or kV according to patient size. COMPARISON: Right femoral radiograph on the same day. FINDINGS: Image quality: Excellent. Bones: As seen on right femoral radiograph, there is an acute comminuted fractures involving proximal right femoral shaft with dorsal displacement at fracture site. There is also involvement of lesser t rochanter with medially displaced lesser trochanteric fragment. No evidence of acetabular fracture. S evere right hip joint osteoarthritic changes are seen. Moderate left hip joint osteoarthritic changes also seen. No evidence of avascular necrosis of femoral head. There is prior internal fixation of left femoral neck with intramedullary ирина placement and signific ant beam hardening artifacts. No gross hardware loosening or failure is seen. Old healed left superio r and inferior pubic ramus fractures are seen with chronic-appearing deformity. Soft tissues: There is significant soft tissue edema and swelling adjacent to right proximal femoral shaft fracture site. There is small right hip joint effusion. No calcified intra-articular loose bod ies. No abnormal soft tissue calcifications. There is no pelvic free fluid of free air. No abnormal b owel wall thickening. IMPRESSION: 1. Acute comminuted and displaced proximal right femoral shaft fracture as above. 2. Moderate to severe right hip joint osteoarthritis. No acetabular fracture. No evidence of avascula r necrosis of femoral head. 3. Moderate left hip joint osteoarthritis. Old healed left superior and inferior pubic ramus fracture s. Prior fixation of left femoral shaft with intramedullary ирина in place. 4. Soft tissue swelling and edema surrounding right proximal femoral shaft fracture site. No abnormal soft tissue calcifications. No calcified intra-articular loose bodies. Reviewed by: Krystian Galan MD on 08/17/2023 4:25 PM PST Approved by: Krystian Galan MD on 08/17/2023 4:25 PM PST Station ID: [id number]
[2023-08-17 16:55] LABS: BASOPHILS % (AUTO) 0.4 %; EOSINOPHILS % (AUTO) 0.1 %; HCT - HEMATOCRIT 32.3 % (37.0-47.0); HGB - HEMOGLOBIN 10.2 g/dL (12.0-16.0); LYMPHOCYTES # (AUTO) 0.6 10^3/uL (1.5-3.5); LYMPHOCYTES % (AUTO) 5.6 %; MEAN CORPUSCULAR HEMOGLOBIN 30.8 pg (27.0-31.0); MEAN CORPUSCULAR HGB CONC 31.6 g/dL (32.0-36.0); MEAN CORPUSCULAR VOLUME 97.6 fL (81.0-99.0); MEAN PLATELET VOLUME 8.7 fL (7.9-10.8); MONOCYTES % (AUTO) 8.8 %; NEUTROPHILS # (AUTO) 9.6 10^3/uL (1.5-6.6); NEUTROPHILS % (AUTO) 84.6 %; PLT - PLATELET COUNT 360 10^3/uL (130-450); RED BLOOD COUNT 3.31 10^6/uL (4.20-5.40); RED CELL DISTRIBUTION WIDTH 13.7 % (12.0-15.0); WHITE BLOOD COUNT 11.3 x10^3/uL (4.8-10.8)
[2023-08-17] MEDS: NS W/20 MEQ KCL 1,000 ML IV SCH (18:21)
[2023-08-17] MEDS: SODIUM CHLORIDE FLUSH 0.9% 10 ML SYRINGE IVP SCH (18:21)
[2023-08-17] MEDS: ONDANSETRON 4 MG/2 ML VIAL IVP PRN (18:26)
[2023-08-17] MEDS: ACETAMINOPHEN 325 MG TABLET PO SCH (21:31)
[2023-08-17] MEDS: CELECOXIB 100 MG CAPSULE PO SCH (21:31)
[2023-08-18] MEDS: ACETAMINOPHEN 325 MG TABLET PO SCH ×4 (01:30→12:30)
[2023-08-18] MEDS: SODIUM CHLORIDE FLUSH 0.9% 10 ML SYRINGE IVP SCH ×4 (01:41→23:48)
[2023-08-18] MEDS: NS W/20 MEQ KCL 1,000 ML IV SCH ×2 (04:41→18:28)
[2023-08-18] MEDS: HYDROmorphone 0.5 MG/0.5 ML SYRINGE IVP PRN ×4 (05:58→17:46)
[2023-08-18] MEDS: oxyCODONE 5 MG TABLET PO PRN ×2 (06:03→22:58)
[2023-08-18] MEDS: fentaNYL 100 MCG/2 ML VIAL IVP PRN (07:00)
--- NOTE | 2023-08-18 09:23 | CONSULTATION NOTE ---
Referring Provider Name of Referring Provider:: Dr Rahman Consult Date: 08/18/23 Chief Complaint - Chief Complaint Chief Complaint: Fall, hip fracture, COVID (+) History of Present Illness - Admitted From Admitted From:: ED - History Obtained From History obtained from: Chart review - History of Present Illness HPI Comment/Other: This is a 77 y/o female with Hx of osteoporosis and is scheduled to have an elective R knee procedure on 08/19/23. She was seen in Ortho office for pre-op evela on 08/17/23. Subsequently, at home, she turned and fell and had pain in R thigh. She was evaluated in ER and found to have a hip fracture and the Ortho team is planning to take her to the OR this afternoon. A consult from the Hospitalist service was requested by Ortho. In her W/U, she is found to be COVID (+). Her VS do not show desaturations. She has a WBC of 11, normal electrolytes, TSH and LFTs. Her CODE status is Full Code. History - Past Medical History Cardiovascular: reports: None Respiratory: reports: None Neuro: reports: None Endocrine/Autoimmune: reports: None GI: reports: None : reports: None HEENT: reports: None Psych: reports: None Musculoskeletal: reports: Osteoarthritis, Osteopenia Derm: reports: None MRSA Hx?: No - Past Surgical History General: reports: Colonoscopy Ortho: reports: Knee replacement - Family & Social History Living arrangement: At home Living Situation: With spouse/s.o. Meds/Allgy - Home Medications Home Medications: Ambulatory Orders Medication Instructions Recorded Confirmed Ascorbic Acid [Vitamin C] 500 mg PO DAILY 08/14/23 08/14/23 Cyanocobalamin (Vitamin B-12) 2,500 mcg PO DAILY 08/14/23 08/14/23 [Vitamin B-12] Ferrous Sulfate [Feosol] 325 mg PO DAILY 08/14/23 08/14/23 Meloxicam, Submicronized 10 mg PO DAILY 08/14/23 08/14/23 [Meloxicam] glucosamine HCL [Glucosamine HCl] 1,500 mg PO BID 08/14/23 08/14/23 - Allergies Allergies/Adverse Reactions: Allergies Allergy/AdvReac Type Severity Reaction Status Date / Time bee venom protein (honey bee) Allergy Severe Anaphylaxis Verified 08/17/23 13:01 Exam - Vital Signs Reviewed Vital Signs: Yes Vital Signs: Vital Signs x48h Temp Pulse Resp BP Pulse Ox 08/18/23 07:42 37.3 C 62 18 109/56 L 95 - Physical Exam General Appearance: positive: No acute distress (Exam done remotely) Eyes Bilateral: positive: Normal inspection ENT: positive: ENT inspection nml Neck: positive: Nml inspection Respiratory: positive: No respiratory distress Cardiovascular: positive: Regular rate & rhythm Abdomen: positive: No distention Skin: positive: Warm, Dry Neurologic/Psychiatric: positive: Oriented x3 Conclusion/Plan - Problem List (1) Femur fracture, right Conclusion/Plan: Plan: as per Ortho service Qualifiers: Encounter type: initial encounter Femur location: unspecified portion of femur Fracture type: closed Fracture morphology: unspecified fracture morphology Qualified Code(s): S72.91XA - Unspecified fracture of right femur, initial encounter for closed fracture (2) Pre-op evaluation Conclusion/Plan: Recommend: Obtain an EKG for pre-op eval. I can find no pre-op EKG from the 08/17/23 pre-op visit to Ortho. An EKG was done today which I interpreted: NSR, nonspecific lateral T wave flattening in leads I and aVL. Since EKG from 05/21/2018, infero- lateral ST-T abnormalities are now absent. Her Revised Cardiac Risk Index is 0 points, or a Class 1 risk, equating to a 3.9% 30-day risk of , VT or cardiac arrest. (3) COVID-19 Conclusion/Plan: Recommend: She should be in infectious isolation Monitor VS for desaturating and keep O2 sat > 92%, or give suppl O2 if sats drop. (4) Anemia Conclusion/Plan: Her Hgb is 8.8. The patient is on iron and other supplements pre-admission Plan: Follow hemoglobin daily, especially since she may lose blood in the OR and then would need transfusion if hemoglobin drops below 7. Eval B12 level, Folate level, and Iron stores and replace if low - Lab Results Lab results reviewed: Yes Fish Bones: 08/18/23 09:55 08/17/23 13:44
[2023-08-18] MEDS: CELECOXIB 100 MG CAPSULE PO SCH ×2 (09:24→20:55)
[2023-08-18 10:03] LABS: BASOPHILS % (AUTO) 0.2 %; EOSINOPHILS # (AUTO) 0.1 10^3/uL (0.0-0.7); EOSINOPHILS % (AUTO) 0.7 %; HCT - HEMATOCRIT 27.7 % (37.0-47.0); HGB - HEMOGLOBIN 8.8 g/dL (12.0-16.0); LYMPHOCYTES # (AUTO) 1.3 10^3/uL (1.5-3.5); LYMPHOCYTES % (AUTO) 12.9 %; MEAN CORPUSCULAR HEMOGLOBIN 31.1 pg (27.0-31.0); MEAN CORPUSCULAR HGB CONC 31.8 g/dL (32.0-36.0); MEAN CORPUSCULAR VOLUME 97.9 fL (81.0-99.0); MEAN PLATELET VOLUME 8.6 fL (7.9-10.8); MONOCYTES # (AUTO) 1.4 10^3/uL (0.0-1.0); MONOCYTES % (AUTO) 13.9 %; PLT - PLATELET COUNT 303 10^3/uL (130-450); RED BLOOD COUNT 2.83 10^6/uL (4.20-5.40); WHITE BLOOD COUNT 9.7 x10^3/uL (4.8-10.8)
[2023-08-18] MEDS ORDERED: fentaNYL 100 MCG/2 ML VIAL IVP PRN ×2 (12:29→17:13)
[2023-08-18] MEDS ORDERED: METOCLOPRAMIDE 10 MG/2 ML VIAL IVP PRN ×2 (12:29→17:13)
[2023-08-18] MEDS ORDERED: ONDANSETRON 4 MG/2 ML VIAL IVP PRN ×2 (12:29→17:13)
[2023-08-18] MEDS ORDERED: ATROPINE ABBOJECT 1 MG/10 ML SYRINGE IVP PRN ×2 (12:29→17:13)
[2023-08-18] MEDS ORDERED: MORPHINE 2 MG/ML CARPUJECT IVP PRN ×2 (12:29→17:13)
[2023-08-18] MEDS ORDERED: ePHEDrine 50 MG/ML VIAL IVP PRN ×2 (12:29→17:13)
[2023-08-18] MEDS ORDERED: NALOXONE 0.4 MG/ML VIAL IVP PRN ×2 (12:29→17:13)
--- NOTE | 2023-08-18 12:29 | ANESTHESIA ---
Pre-Anesthesia VS, & Labs - Diagnosis R femur fx - Procedure R IM femur Vital Signs: Temp Pulse Resp BP Pulse Ox O2 Flow Rate 37.3 C 62 18 109/56 L 95 08/18/23 07:42 08/18/23 07:42 08/18/23 07:42 08/18/23 07:42 08/18/23 07:42 Height: 5 ft 1 in Weight (kg): 52 kg Body Mass Index: 21.7 BMI Classification: Normal - NPO >8 hours - Is Patient ?: No - Lab Results Current Lab Results: Laboratory Tests 08/18/23 09:55: WBC 9.7, RBC 2.83 L, Hgb 8.8 L, Hct 27.7 L, MCV 97.9, MCH 31.1 H , MCHC 31.8 L, RDW 14.0, Plt Count 303, MPV 8.6, Neut # (Auto) 7.0 H, Lymph # (Auto) 1.3 L, [place] # (Auto) 1.4 H, Eos # (Auto) 0.1, Baso # (Auto) 0.0, Absolute Nucleated RBC 0.00, Nucleated RBC % 0.0 08/17/23 16:49: WBC 11.3 H, RBC 3.31 L, Hgb 10.2 L, Hct 32.3 L, MCV 97.6, MCH 30.8, MCHC 31.6 L, RDW 13.7, Plt Count 360, MPV 8.7, Neut # (Auto) 9.6 H, Lymph # (Auto) 0.6 L, [place] # (Auto) 1.0, Eos # (Auto) 0.0, Baso # (Auto) 0.0, Absolute Nucleated RBC 0.00, Nucleated RBC % 0.0 08/17/23 13:44: Sodium 139, Potassium 3.6, Chloride 103, Carbon Dioxide 28, Anion Gap 8.0, BUN 24 H, Creatinine 0.7, Estimated GFR (MDRD) 81 L, Glucose 128 H, Calcium 9.0, Total Bilirubin 0.4, AST 15, ALT 11, Alkaline Phosphatase 56, Total Protein 5.8 L, Albumin 3.8, Globulin 2.0 L, Albumin/Globulin Ratio 1.9 08/17/23 13:44: WBC 10.9 H, RBC 3.54 L, Hgb 10.9 L, Hct 33.8 L, MCV 95.5, MCH 3 0.8, MCHC 32.2, RDW 13.8, Plt Count 372, MPV 8.8, Neut # (Auto) 8.4 H, Lymph # (Auto) 1.2 L, [place] # (Auto) 1.1 H, Eos # (Auto) 0.1, Baso # (Auto) 0.0, Absolute Nucleated RBC 0.00, Nucleated RBC % 0.0 Lab results reviewed: Yes Fish Bones: 08/18/23 09:55 08/17/23 13:44 Home Medications and Allergies Active Medications Acetaminophen (Acetaminophen 325 Mg Tablet) 650 mg PO Q4HR [facility] Last Admin: 08/18/23 09:24 Dose: 650 mg Celecoxib (Celecoxib 100 Mg Capsule) 100 mg PO BID [facility] Last Admin: 08/18/23 09:24 Dose: 100 mg Hydromorphone HCl (Hydromorphone 0.5 Mg/0.5 Ml Syringe) 0.5 mg IVP Q2H PRN PRN Reason: Pain 8 to 10 Last Admin: 08/18/23 05:58 Dose: 0.5 mg Potassium Chloride/Sodium Chloride (Normal Saline 0.9% W/20 Meq Kcl) 1,000 mls @ 100 mls/hr IV .Q10H [facility] Last Admin: 08/18/23 04:41 Dose: 100 mls/hr Ondansetron HCl (Ondansetron 4 Mg/2 Ml Vial) 4 mg IVP Q6HR PRN PRN Reason: Nausea / Vomiting Last Admin: 08/17/23 18:26 Dose: 4 mg Oxycodone HCl (Oxycodone 5 Mg Tablet) 5 mg PO Q4HR PRN PRN Reason: Pain 5 to 7 Oxycodone HCl (Oxycodone 5 Mg Tablet) 10 mg PO Q4HR PRN PRN Reason: Pain 8 to 10 Last Admin: 08/18/23 06:03 Dose: 10 mg Sodium Chloride (Sodium Chloride Flush 0.9% 10 Ml Syringe) 10 ml IVP PRN PRN PRN Reason: NEEDED PER PROVIDER ORDERS Sodium Chloride (Sodium Chloride Flush 0.9% 10 Ml Syringe) 10 ml IVP 0100,0900,1700 [facility] Last Admin: 08/18/23 09:24 Dose: 10 ml Ascorbic Acid [Vitamin C] 500 mg PO DAILY 08/14/23 Cyanocobalamin (Vitamin B-12) [Vitamin B-12] 2,500 mcg PO DAILY 08/14/23 Ferrous Sulfate [Feosol] 325 mg PO DAILY 08/14/23 Meloxicam, Submicronized [Meloxicam] 10 mg PO DAILY 08/14/23 glucosamine HCL [Glucosamine HCl] 1,500 mg PO BID 08/14/23 Allergies/Adverse Reactions: Allergies Allergy/AdvReac Type Severity Reaction Status Date / Time bee venom protein (honey bee) Allergy Severe Anaphylaxis Verified 08/17/23 13:01 Anes History & Medical History - Anesthetic History Anesthesia Complications: reports: No previous complications Family history of Anesthesia Complications: Denies Family history of Malignant Hyperthermia: Denies - Medical History Cardiovascular: reports: None Pulmonary: reports: None Gastrointestinal: reports: None Urinary: reports: None Neuro: reports: None Musculoskeletal: reports: Osteoarthritis, Osteopenia Endocrine/Autoimmune: reports: None Blood Disorders: reports: None Skin: reports: None Smoking Status: Never smoker - Surgical History General: reports: Colonoscopy Orthopedic: reports: Knee replacement Exam General: Alert, Oriented x3, Cooperative Dental: WNL Mouth Openin Fingerbreadth Neck Mobility: Normal Mallampati classification: II Thyromental Distance: 4-6 cm Respiratory: Lungs clear, Normal breath sounds, No respiratory distress Cardiovascular: Regular rate Neurological: Normal speech Mental/Cognitive Status: Alert/Oriented X3, Normal for patient Plan Anesthesia Type: Spinal Consent for Procedure(s) Verified and Reviewed: Yes Code Status: Attempt Resuscitation ASA classification: 2-Mild systemic disease Is this case an emergency?: No
[2023-08-18] MEDS ORDERED: MIDAZOLAM 2 MG/2 ML VIAL ONE (12:39)
[2023-08-18] MEDS ORDERED: fentaNYL 100 MCG/2 ML VIAL ONE (12:39)
[2023-08-18] MEDS ORDERED: PROPOFOL 500 MG/50 ML 500 MG/50 ML VIAL ONE (12:40)
[2023-08-18] MEDS ORDERED: PHENYLEPHRINE HCL 0.5 MG/5 ML AMPULE ONE (12:45)
[2023-08-18] MEDS ORDERED: SODIUM CHLORIDE 0.9% 10 ML VIAL IVP ONE (12:45)
[2023-08-18] MEDS ORDERED: LACTATED RINGERS 1,000 ML IV SCH ×2 (13:00→17:13)
[2023-08-18] MEDS ORDERED: BUPIVACAINE 0.25% PF 30 ML VIAL ONE (13:04)
[2023-08-18] MEDS ORDERED: VANCOMYCIN 1 GM VIAL ONE (13:04)
[2023-08-18] MEDS ORDERED: ceFAZolin 1 GM VIAL ONE (13:55)
[2023-08-18] MEDS ORDERED: TRANEXAMIC ACID 1,000 MG/10 ML VIAL ONE (14:23)
[2023-08-18] MEDS ORDERED: BUPIVACAINE 0.25% PF 30 ML VIAL SUBQ ONE (14:33)
[2023-08-18] MEDS ORDERED: PROPOFOL 200 MG/20 ML VIAL IVP ONE ×3 (15:29→16:40)
[2023-08-18] MEDS ORDERED: KETOROLAC 30 MG/ML VIAL ONE (16:26)
--- NOTE | 2023-08-18 17:12 | OPERATIVE REPORT ---
Operative Report - General Admit Date: 08/17/23 Procedure Date: 08/18/23 Planned Procedure: Open reduction internal fixation right subtrochanteric femur fracture Pre-Op Diagnosis: Closed, displaced comminuted subtrochanteric right femur fracture Procedure Performed: Open reduction internal fixation right subtrochanteric femur fracture with [employer] 11.5 x 38 mm ирина, 100 mm proximal lag screw and 2 distal 5.0 mm locking screws Post Op Diagnosis: Same as preoperative diagnosis - Procedure Note Primary Surgeon: Jessee Rahman MD Secondary Surgeon: Francine REYES Anesthesia Provider: Mario Soliman CRNA Anesthesia Technique: Spinal Estimated Blood Loss (mL): 75 Indications: This is a 77-year-old woman who fell at home on day of admission at home on carpeted floor. She was turning, fell and landed on her right side. She had immediate pain to her right thigh, marked pain and inability to bear weight. She was brought to the emergency room where she was seen and evaluated by the emergency room physician. I was contacted to see her. She was scheduled to have a right total knee arthroplasty on 08/19/2023 for osteoarthritis of the right knee. She was seen by me for her preoperative evaluation on the date of injury approximately 2 hours before injury. She does have a history of right knee and right hip pain prior to the fall. She has no other complaints of pain other than her right thigh. She denies chest pain, shortness of breath, dizziness, syncope or loss of consciousness associated with the fall. Her general health has been relatively good but she does have a history of anemia and other stable medical problems. She had shortening and external rotation deformity as well as some swelling to the right thigh. Her skin was intact of the right thigh and there is tenderness to the right thigh. There is no sign of compartment syndrome. Her neurovascular status was intact to right leg. And the rest of her extremity examination did not show any injury.Her routine radiographs showed a displaced femoral proximal shaft fracture including the subtrochanteric region and lesser trochanter. There is a long spiral fracture involving the shaft and additional fracture in the subtrochanteric region more proximally with some comminution. She was evaluated and admitted to the hospital. She was admitted for comanaged care with both surgeon and hospitalist. Her hemoglobin today was approximately 8.8, a drop from admission but vital signs are stable. The hemoglobin drop is most likely associated with fracture hematoma and intravenous fluids creating increased intravascular volume. The risk goals and alternatives were discussed with the patient and informed consent was obtained for surgical stabilization of her fracture consisting of open reduction internal fixation of the right femur with intramedullary ирина and screws. She was felt to be safe for surgery from both surgical and hospitalist viewpoints. Findings: Spiral, displaced femoral shaft fracture involving proximal femur, additional fracture in the lesser trochanteric and subtrochanteric region. The femoral neck was flexed and the proximal fragment abducted. Complications: None - Other Other Information/Narrative: The patient was brought to the operating room and received a lumbar spinal anesthesia. She was placed supine on the [place] fracture table with bilateral boot traction. The left leg was placed in a scissor type position to allow intraoperative C arm usage. The operative leg was placed in some traction. No traction was applied to the left leg. The right lower extremity was prepped and draped in a sterile manner in the usual fashion. The C arm was covered with a sterile drape a timeout procedure was performed by the entire operating room team. The initial incision was placed just proximal to the greater trochanter and ankle slightly posterior. To improve the angulation in the subtrochanteric simon on, a padded crutch was placed to the posterior thigh and pushed in an anterior direction. This facilitated a reduction on the lateral view in the trochanteric and subtrochanteric region. The alignment on the AP view was satisfactory. The guidepin was inserted in the trochanteric region just slightly lateral to the piriformis fossa and was introduced with the C-arm image intensifier in the appr oximate midline on the lateral view. The starting reamer was then placed over the guidepin, then long flexible intramedullary guide pin.The depth of the intramedullary guide pin measured approximately 38 cm. Flexible intramedullary reaming was then performed up to 13 mm and up to 13.5 mm for the entry area. The InterTAN 11.5 mm x 38 cm intramedullary ирина was gently impacted across the fracture using C arm image intensifier, biplanar imaging. The ирина was fully seated to allow insertion of a hip lag screw. To reduce the intertrochanteric or subtrochanteric fracture component, a third 2 cm incision was made and a bone clamp was placed around the most proximal fracture to reduce the flexion deformity of the proximal fracture fragment by gently applying this clamp, the guidepin could be inserted in the approximate midline on both AP and lateral views of the femoral head. The guidepin was measured and found to be approximately 100 mm. A subtrochanteric 100 mm lag screw was inserted and had good purchase. The entire length of the femur was then visualized with the C arm and showed good alignment of fracture and internal fixation. The length of the fractures seem to be appropriate and rotation was placed with the patella facing superiorly. 2 distal locking screws were inserted from lateral to medial using distal targeting and a freehand technique. Full visualization of the f emur was obtained with the C arm image intensifier and appropriate fixation and alignment was obtained. The wounds were irrigated there were 3 major incisions 1 for the trochanteric insertion, 1 for the lag screw, 1 for accessory reduction clamp in the 2 distal locking screw holes which were quite small. The wounds were irrigated, subcutaneous tissue was closed with 2-0 Monocryl, skin closed with dimas, dry sterile dressings applied. Patient tolerated procedure well. A physician assistant city attorney was felt to be medically appropriate and necessary to facilitate reduction, positioning, wound closure and dressing.She received 2 g of Ancef intravenously and a gram of tranxemic acid
[2023-08-18] MEDS ORDERED: HYDROmorphone 0.5 MG/0.5 ML SYRINGE IVP PRN (17:13)
[2023-08-18] MEDS ORDERED: LACTATED RINGERS 1,000 ML IV ONE (17:29)
[2023-08-18] MEDS ORDERED: DOCUSATE SODIUM 100 MG CAPSULE PO PRN (17:32)
[2023-08-18] MEDS ORDERED: ceFAZolin (2G) 2 GM in SODIUM CHLORIDE 0.9% MINIBAG 100 ML IV SCH ×2 (18:00→22:00)
--- NOTE | 2023-08-18 18:04 | ANESTHESIA POST OP EVALUATION ---
Anesthesia Post Eval - Post Anesthesia Eval Vitals: Last Vital Signs Temp 36.5 C 08/18/23 18:00 Pulse 61 08/18/23 18:00 Resp 12 08/18/23 18:00 BP 120/60 08/18/23 18:00 Pulse Ox 95 08/18/23 18:00 O2 Flow Rate CV Function Including HR & BP: Stable Pain Control: Satisfactory Nausea & Vomiting: Negative Mental Status: Baseline Respiratory Status: Airway Patent Hydration Status: Satisfactory Anesthesia Complications: None
--- NOTE | 2023-08-18 18:08 | XRAY Report ---
PROCEDURE: Femur 2+V RT INDICATIONS: post operative imaging TECHNIQUE: 4 views of the femur were acquired. COMPARISON: X-ray 08/17/2023 FINDINGS: Bones: Intramedullary ирина and screw fixation of the proximal femoral shaft fracture. There is near-a natomic alignment. Soft tissues: Overlying postoperative changes are noted. IMPRESSION: Postoperative changes from ORIF of a proximal femoral shaft fracture with near anatomic alignment. No evidence of hardware complication. Reviewed by: Goldy Haile MD on 08/18/2023 6:07 PM PST Approved by: Goldy Haile MD on 08/18/2023 6:07 PM PST Station ID: [id number]
[2023-08-18] MEDS ORDERED: ACETAMINOPHEN 500 MG TABLET PO ONE (20:50)
[2023-08-18] MEDS ORDERED: ACETAMINOPHEN 325 MG TABLET PO SCH (22:00)
[2023-08-18] MEDS: fentaNYL 250 MCG/5 ML VIAL IVP PRN (23:44)
[2023-08-19] MEDS: oxyCODONE 5 MG TABLET PO PRN ×5 (03:22→22:44)
[2023-08-19] MEDS: fentaNYL 250 MCG/5 ML VIAL IVP PRN (04:37)
[2023-08-19] MEDS: NS W/20 MEQ KCL 1,000 ML IV SCH ×2 (04:39→16:17)
[2023-08-19 05:33] LABS: BASOPHILS % (AUTO) 0.3 %; EOSINOPHILS # (AUTO) 0.2 10^3/uL (0.0-0.7); EOSINOPHILS % (AUTO) 2.5 %; HCT - HEMATOCRIT 21.3 % (37.0-47.0); LYMPHOCYTES % (AUTO) 16.4 %; MEAN CORPUSCULAR HEMOGLOBIN 31.9 pg (27.0-31.0); MEAN CORPUSCULAR HGB CONC 31.9 g/dL (32.0-36.0); MEAN PLATELET VOLUME 8.8 fL (7.9-10.8); MONOCYTES % (AUTO) 16.6 %; PLT - PLATELET COUNT 240 10^3/uL (130-450); RED BLOOD COUNT 2.13 10^6/uL (4.20-5.40); RED CELL DISTRIBUTION WIDTH 14.2 % (12.0-15.0); WHITE BLOOD COUNT 6.3 x10^3/uL (4.8-10.8)
[2023-08-19 05:51] LABS: HGB - HEMOGLOBIN 6.8 g/dL (12.0-16.0)
[2023-08-19] MEDS: ACETAMINOPHEN 500 MG TABLET PO SCH ×3 (06:43→21:37)
[2023-08-19] MEDS ORDERED: fentaNYL 250 MCG/5 ML VIAL IVP PRN (08:13)
--- NOTE | 2023-08-19 08:20 | PROVIDER PROGRESS NOTE ---
Assessment/Plan - Problem List (1) Femur fracture, right Qualifiers: Encounter type: initial encounter Femur location: unspecified portion of femur Fracture type: closed Fracture morphology: unspecified fracture morphology Qualified Code(s): S72.91XA - Unspecified fracture of right femur, initial encounter for closed fracture Assessment/Plan: Today is POD #1 after hip surg done yesterday Plan: Since she is on scheduled Celebrex and scheduled ASA BID, add Pepcid to prevent a gastric ulcer, I have ordered that Cont pain meds prn Begin increasing activity w/ PT and OT (2) Hypotension BP is <100 syst today. This is likely multifactorial: from iv narcotics, from being NPO, and from marked anemia Plan: Transfuse blood today (see #3) Decrease iv narcotic doses Cont iv fluids She will need orthostatic VS checked as she starts to stand to work with PT today, I have ordered that (3) Iron deficiency anemia Conclusion/Plan: Her B12 and Folate levels are good, but she has very lowe Iron stores Her Hgb was 8.8 yesterday and dropped to 6.8 today. This is from blood loss in OR yesterday and hemodilutional, and from being Iron deficient per her labs Plan: Transfuse 1 U of blood today Resume her po Iron supplement. Fe is better absorbed with vit C, but that would add to risk for GERD, since she is also getting ASA and Celebrex, so I will not resume her vit C po. (4) COVID-19 Conclusion/Plan: Recommend: She should remain in infectious isolation. Isolation can be stopped when advised by our Infec Prev RN, Gloria Burns Monitor VS for desaturating and keep O2 sat > 92%, or give suppl O2 if sats drop. - Current Meds Current Meds: Current Medications Generic Name Dose Route Start Last Admin Trade Name Freq PRN Reason Stop Dose Admin Acetaminophen 1,000 mg 08/19/23 07:00 08/19/23 06:43 Acetaminophen 500 Mg Tablet PO 1,000 mg TID TORO Administration Celecoxib 200 mg 08/18/23 21:00 08/18/23 20:55 Celecoxib 100 Mg Capsule PO 200 mg BID TORO Administration Potassium Chloride/Sodium Chloride 1,000 mls @ 100 mls/hr 08/18/23 17:37 08/19/23 04:39 Normal Saline 0.9% W/20 Meq Kcl IV 100 mls/hr .Q10H TORO Administration Ondansetron HCl 4 mg 08/17/23 16:22 08/17/23 18:26 Ondansetron 4 Mg/2 Ml Vial IVP 4 mg Q6HR PRN Administration Nausea / Vomiting Oxycodone HCl 10 mg 08/17/23 16:22 08/19/23 03:22 Oxycodone 5 Mg Tablet PO 10 mg Q4HR PRN Administration Pain 8 to 10 Sodium Chloride 10 ml 08/17/23 17:00 08/18/23 23:48 Sodium Chloride Flush 0.9% 10 Ml Syringe IVP 10 ml 0100,0900,1700 TORO Administration - Lab Result Fish Bone Diagrams: 08/20/23 06:52 08/17/23 13:44 - Additional Planning My Orders: My Active Orders 08/18/23 18:44 [place] Insertion [RC] QSHIFT 08/19/23 07:23 Transfuse RBCs Leukoreduced [RC] .ONCE 08/19/23 07:44 RBC, LEUKOREDUCED Stat TYPE AND SCREEN Stat 08/19/23 08:13 fentaNYL 25 mcg IVP Q4HR PRN 08/19/23 09:00 Famotidine [Pepcid] 20 mg PO BID Subjective - Subjective Patient Reports: Resting Comfortably, No Complaints (Pain is better controlled than yesterday, she said) Objective Vital Signs: Vital Signs - 24 hr 08/18/23 08/18/23 08/18/23 17:29 17:35 17:40 Temperature 36.4 C L Heart Rate 63 58 L 63 Heart Rate [ Brachial] Respiratory 14 10 L 10 L Rate Blood Pressure 127/71 111/62 106/61 Blood Pressure [Right Brachial artery] O2 Saturation 96 99 94 If not protocol : Oxygen Flow, liters/minute 08/18/23 08/18/23 08/18/23 17:44 17:50 17:55 Temperature Heart Rate 65 69 63 Heart Rate [ Brachial] Respiratory 18 16 12 Rate Blood Pressure 121/63 130/60 125/70 Blood Pressure [Right Brachial artery] O2 Saturation 98 97 If not protocol : Oxygen Flow, liters/minute 08/18/23 08/18/23 08/18/23 18:00 18:04 18:15 Temperature 36.5 C 36.5 C Heart Rate 61 55 L Heart Rate [ 59 L Brachial] Respiratory 12 14 14 Rate Blood Pressure 120/60 123/69 Blood Pressure 133/62 H [Right Brachial artery] O2 Saturation 95 100 100 If not protocol 2 : Oxygen Flow, liters/minute 08/18/23 08/18/23 08/19/23 18:37 18:55 00:03 Temperature 36.5 C 36.7 C Heart Rate Heart Rate [ 60 63 75 Brachial] Respiratory 14 16 16 Rate Blood Pressure Blood Pressure 123/55 L 124/58 L 111/56 L [Right Brachial artery] O2 Saturation 95 98 100 If not protocol : Oxygen Flow, liters/minute 08/19/23 04:09 Temperature 36.8 C Heart Rate Heart Rate [ 68 Brachial] Respiratory 16 Rate Blood Pressure Blood Pressure 95/60 [Right Brachial artery] O2 Saturation 98 If not protocol : Oxygen Flow, liters/minute Oxygen O2 Source Room air I&O (Last 24 Hrs): Intake and Output Totals x24h 08/17/23 08/18/23 08/19/23 23:59 23:59 23:59 Intake Total 100 2353.333 485 Output Total 200 1000 750 Balance -100 1353.333 -265 General: Alert (Exam done remotely) Neck: Supple Neuro: Non Focal Cardiovascular: Regular rate Respiratory: No respiratory distress Extremities: Other (Pain at R hip surg site) - Results Results: Laboratory Results WBC 6.3 x10^3/uL (4.8-10.8) 08/19/23 05:21 RBC 2.13 10^6/uL (4.20-5.40) L 08/19/23 05:21 Hgb 6.8 g/dL (12.0-16.0) L* 08/19/23 05:21 Hct 21.3 % (37.0-47.0) L 08/19/23 05:21 MCV 100.0 fL (81.0-99.0) H 08/19/23 05:21 MCH 31.9 pg (27.0-31.0) H 08/19/23 05:21 MCHC 31.9 g/dL (32.0-36.0) L 08/19/23 05:21 RDW 14.2 % (12.0-15.0) 08/19/23 05:21 Plt Count 240 10^3/uL (130-450) 08/19/23 05:21 MPV 8.8 fL (7.9-10.8) 08/19/23 05:21 Neut # (Auto) 4.0 10^3/uL (1.5-6.6) 08/19/23 05:21 Lymph # (Auto) 1.0 10^3/uL (1.5-3.5) L 08/19/23 05:21 [place] # (Auto) 1.0 10^3/uL (0.0-1.0) 08/19/23 05:21 Eos # (Auto) 0.2 10^3/uL (0.0-0.7) 08/19/23 05:21 Baso # (Auto) 0.0 10^3/uL (0.0-0.1) 08/19/23 05:21 Absolute Nucleated RBC 0.00 x10^3/uL 08/19/23 05:21 Nucleated RBC % 0.0 /100WBC 08/19/23 05:21 Sodium 139 mmol/L (135-145) 08/17/23 13:44 Potassium 3.6 mmol/L (3.5-4.5) 08/17/23 13:44 Chloride 103 mmol/L (101-111) 08/17/23 13:44 Carbon Dioxide 28 mmol/L (21-32) 08/17/23 13:44 Anion Gap 8.0 (6-13) 08/17/23 13:44 BUN 24 mg/dL (6-20) H 08/17/23 13:44 Creatinine 0.7 mg/dL (0.6-1.3) 08/17/23 13:44 Estimated GFR (MDRD) 81 (>89) L 08/17/23 13:44 Glucose 128 mg/dL (74-104) H 08/17/23 13:44 Calcium 9.0 mg/dL (8.5-10.3) 08/17/23 13:44 Iron 12 ug/dL (50-212) L 08/19/23 05:21 TIBC 209 ug/dL (250-450) L 08/19/23 05:21 % Saturation 6 % (20-50) L 08/19/23 05:21 Transferrin 149 mg/dL (203-362) L 08/19/23 05:21 Total Bilirubin 0.4 mg/dL (0.2-1.0) 08/17/23 13:44 AST 15 IU/L (10-42) 08/17/23 13:44 ALT 11 IU/L (10-60) 08/17/23 13:44 Alkaline Phosphatase 56 IU/L (42-121) 08/17/23 13:44 Total Protein 5.8 g/dL (6.4-8.9) L 08/17/23 13:44 Albumin 3.8 g/dL (3.2-5.5) 08/17/23 13:44 Globulin 2.0 g/dL (2.1-4.2) L 08/17/23 13:44 Albumin/Globulin Ratio 1.9 (1.0-2.2) 08/17/23 13:44 Vitamin B12 1216 pg/mL (180-914) H 08/19/23 05:21 Folate 15.9 ng/mL (5.90 - >24.8) 08/19/23 05:21 SARS-CoV-2 (PCR) DETECTED A 08/17/23 14:13 Crossmatch IS Only See Detail 08/19/23 07:44 - Procedures Procedures: Procedures INSPECTION OF LOWER INTESTINAL TRACT, ENDO (09/01/19)
[2023-08-19] MEDS: CELECOXIB 100 MG CAPSULE PO SCH ×2 (08:38→21:37)
[2023-08-19] MEDS: ASPIRIN EC 81 MG TABLET PO SCH ×2 (08:38→21:38)
[2023-08-19] MEDS: FAMOTIDINE 20 MG TABLET PO SCH ×2 (08:38→21:37)
[2023-08-19] MEDS: FERROUS SULFATE 325 MG TABLET PO SCH (08:38)
[2023-08-19] MEDS: SODIUM CHLORIDE FLUSH 0.9% 10 ML SYRINGE IVP SCH ×2 (08:40→16:18)
--- NOTE | 2023-08-19 12:21 | PROVIDER PROGRESS NOTE ---
Subjective - General Admit Date: 08/17/23 Procedure Date: 08/18/23 Post Op Days: 1 Procedure Performed: ORIF right proximal femur - Other Other Information/Narrative: Alert semirecumbent in bed She denies chest pain, dyspnea, dizziness She has not yet been out of bed with physical therapy Pain is controlled at this time Objective - Patient Data Reviewed Vital Signs: Yes Vital Signs: Vital Signs x48h Temp Pulse Resp BP Pulse Ox 08/19/23 11:50 37 C 84 16 138/58 H 98 08/19/23 11:33 37 C 80 16 124/64 98 08/19/23 08:33 36.8 C 75 16 127/55 L 97 Weight: Weight 08/17/23 08/18/23 08/19/23 23:59 23:59 23:59 Weight (kg) 52 kg 52 kg Intake & Output: Intake and Output Totals x24h 08/17/23 08/18/23 08/19/23 23:59 23:59 23:59 Intake Total 100 2353.333 605 Output Total 200 1000 750 Balance -100 1353.333 -145 - Lab Results Lab Results: 08/19/23 05:21 08/17/23 13:44 Other Lab Results: Lab Results x24hrs 08/19/23 08/19/23 08/19/23 Range/Units 07:44 05:21 05:21 WBC 6.3 (4.8-10.8) x10^3/uL RBC 2.13 L (4.20-5.40) 10^6/uL Hgb 6.8 L* (12.0-16.0) g/dL Hct 21.3 L (37.0-47.0) % MCV 100.0 H (81.0-99.0) fL MCH 31.9 H (27.0-31.0) pg MCHC 31.9 L (32.0-36.0) g/dL RDW 14.2 (12.0-15.0) % Plt Count 240 (130-450) 10^3/uL MPV 8.8 (7.9-10.8) fL Neut # (Auto) 4.0 (1.5-6.6) 10^3/uL Lymph # (Auto) 1.0 L (1.5-3.5) 10^3/uL Simpson # (Auto) 1.0 (0.0-1.0) 10^3/uL Eos # (Auto) 0.2 (0.0-0.7) 10^3/uL Baso # (Auto) 0.0 (0.0-0.1) 10^3/uL Absolute Nucleated RBC 0.00 x10^3/uL Nucleated RBC % 0.0 /100WBC Iron (50-212) ug/dL TIBC (250-450) ug/dL % Saturation (20-50) % Transferrin (203-362) mg/dL Vitamin B12 (180-914) pg/mL Folate (5.90 - >24.8) ng/mL Blood Type A POSITIVE Blood Type Recheck A POSITIVE Antibody Screen NEGATIVE Crossmatch IS Only See Detail 08/19/23 Range/Units 05:21 WBC (4.8-10.8) x10^3/uL RBC (4.20-5.40) 10^6/uL Hgb (12.0-16.0) g/dL Hct (37.0-47.0) % MCV (81.0-99.0) fL MCH (27.0-31.0) pg MCHC (32.0-36.0) g/dL RDW (12.0-15.0) % Plt Count (130-450) 10^3/uL MPV (7.9-10.8) fL Neut # (Auto) (1.5-6.6) 10^3/uL Lymph # (Auto) (1.5-3.5) 10^3/uL Simpson # (Auto) (0.0-1.0) 10^3/uL Eos # (Auto) (0.0-0.7) 10^3/uL Baso # (Auto) (0.0-0.1) 10^3/uL Absolute Nucleated RBC x10^3/uL Nucleated RBC % /100WBC Iron 12 L (50-212) ug/dL TIBC 209 L (250-450) ug/dL % Saturation 6 L (20-50) % Transferrin 149 L (203-362) mg/dL Vitamin B12 1216 H (180-914) pg/mL Folate 15.9 (5.90 - >24.8) ng/mL Blood Type Blood Type Recheck Antibody Screen Crossmatch IS Only - Imaging Results Radiology Imaging: positive: Final report received - Current Medications Current Medications: Current Medications Generic Name Dose Route Start Last Admin Trade Name Dee PRN Reason Stop Dose Admin Acetaminophen 1,000 mg 08/19/23 07:00 08/19/23 06:43 Acetaminophen 500 Mg Tablet PO 1,000 mg TID TORO Administration Aspirin 81 mg 08/19/23 09:00 08/19/23 08:38 Aspirin Ec 81 Mg Tablet PO 81 mg BID TORO Administration Celecoxib 200 mg 08/18/23 21:00 08/19/23 08:38 Celecoxib 100 Mg Capsule PO 200 mg BID TORO Administration Famotidine 20 mg 08/19/23 09:00 08/19/23 08:38 Famotidine 20 Mg Tablet PO 20 mg BID TORO Administration Ferrous Sulfate 325 mg 08/19/23 09:00 08/19/23 08:38 Ferrous Sulfate 325 Mg Tablet PO 325 mg DAILY TORO Administration Ondansetron HCl 4 mg 08/17/23 16:22 08/17/23 18:26 Ondansetron 4 Mg/2 Ml Vial IVP 4 mg Q6HR PRN Administration Nausea / Vomiting Oxycodone HCl 10 mg 08/17/23 16:22 08/19/23 08:30 Oxycodone 5 Mg Tablet PO 10 mg Q4HR PRN Administration Pain 8 to 10 Sodium Chloride 10 ml 08/17/23 17:00 08/19/23 08:40 Sodium Chloride Flush 0.9% 10 Ml Syringe IVP 10 ml 0100,0900,1700 [facility] Administration - Physical Exam Comments/Other: Alert and oriented x4 No acute distress Femoral and sciatic nerve function in tact [address], dry and intact without hematoma or drainage Palpable pedal pulse ABX Reporting Has patient been on IV antibiotics over the past 48 hours?: Yes Impression/Plan - Problem List Problem List: 77 year old female with a past medical history of anemia is post operative day 1 from an open reduction internal fixation of the right proximal femur. She is recovering well with good pain control. She is awaiting physical therapy evaluation today but verbalizes desire to return home with the help of her . She was found to be COVID positive throughout this admission but continues to be asymptomatic. Post operative hemoglobin was 6.8 and she was hypotensive. Transfusion ordered by hospitalist physician. Patient tolerating transfusion well during orthopedic evaluation. CBC to be repeated 30 minutes after transfusion is completed. Plan: - DVT prophylaxis with 81 mg of aspirin twice daily for 6 weeks, SCDs in hospital - Physical and occupational therapy evaluation today and assessment for discharge. No hip precautions. - Pain control with scheduled tylenol, celebrex, tramadol and oxycodone and IV fentanyl as needed - Partial weight bearing with front wheeled walker at all times - Follow up with orthopedic clinic within 1 week of discharge - Mepilex dressings to remain in place until follow up - Normal diet, IV fluids given hypotension - Appreciate hospitalist expertise in management of medical comorbidities - Isloation precautions given COVID status
[2023-08-19] MEDS: GLUCOSAMINE HCL 1500 MG PO SCH ×2 (13:19→21:37)
[2023-08-19] MEDS: ONDANSETRON 4 MG/2 ML VIAL IVP PRN (13:20)
[2023-08-19 15:26] LABS: BASOPHILS % (AUTO) 0.3 %; EOSINOPHILS # (AUTO) 0.2 10^3/uL (0.0-0.7); EOSINOPHILS % (AUTO) 2.4 %; HGB - HEMOGLOBIN 8.2 g/dL (12.0-16.0); LYMPHOCYTES # (AUTO) 0.7 10^3/uL (1.5-3.5); LYMPHOCYTES % (AUTO) 10.2 %; MEAN CORPUSCULAR HEMOGLOBIN 31.5 pg (27.0-31.0); MEAN CORPUSCULAR HGB CONC 32.8 g/dL (32.0-36.0); MEAN CORPUSCULAR VOLUME 96.2 fL (81.0-99.0); MEAN PLATELET VOLUME 8.9 fL (7.9-10.8); MONOCYTES # (AUTO) 1.1 10^3/uL (0.0-1.0); MONOCYTES % (AUTO) 16.1 %; NEUTROPHILS # (AUTO) 4.8 10^3/uL (1.5-6.6); NEUTROPHILS % (AUTO) 70.6 %; PLT - PLATELET COUNT 231 10^3/uL (130-450); RED CELL DISTRIBUTION WIDTH 14.3 % (12.0-15.0); WHITE BLOOD COUNT 6.8 x10^3/uL (4.8-10.8)
[2023-08-20] MEDS: SODIUM CHLORIDE FLUSH 0.9% 10 ML SYRINGE IVP SCH ×4 (00:12→23:41)
[2023-08-20] MEDS: NS W/20 MEQ KCL 1,000 ML IV SCH ×3 (01:12→22:18)
[2023-08-20] MEDS: ACETAMINOPHEN 500 MG TABLET PO SCH ×3 (05:59→21:25)
[2023-08-20 07:10] LABS: BASOPHILS % (AUTO) 0.6 %; EOSINOPHILS # (AUTO) 0.4 10^3/uL (0.0-0.7); EOSINOPHILS % (AUTO) 6.3 %; HCT - HEMATOCRIT 24.3 % (37.0-47.0); HGB - HEMOGLOBIN 7.8 g/dL (12.0-16.0); LYMPHOCYTES # (AUTO) 1.2 10^3/uL (1.5-3.5); LYMPHOCYTES % (AUTO) 17.9 %; MEAN CORPUSCULAR HEMOGLOBIN 31.1 pg (27.0-31.0); MEAN CORPUSCULAR HGB CONC 32.1 g/dL (32.0-36.0); MEAN CORPUSCULAR VOLUME 96.8 fL (81.0-99.0); MONOCYTES # (AUTO) 1.1 10^3/uL (0.0-1.0); MONOCYTES % (AUTO) 16.2 %; NEUTROPHILS # (AUTO) 3.8 10^3/uL (1.5-6.6); NEUTROPHILS % (AUTO) 58.7 %; PLT - PLATELET COUNT 226 10^3/uL (130-450); RED BLOOD COUNT 2.51 10^6/uL (4.20-5.40); RED CELL DISTRIBUTION WIDTH 14.9 % (12.0-15.0); WHITE BLOOD COUNT 6.5 x10^3/uL (4.8-10.8)
--- NOTE | 2023-08-20 07:51 | Discharge Plan ---
Discharge Plan Problem Reviewed?: Yes Diet: Soft (Drink plenty of water with food and sit upright when eating Mince and moisten food) Activity Restrictions: Additional Comments (Toe touch weight bearing) Shower Restrictions: No Driving Restrictions: Yes (No driving) Assistance Devices: Walker Weight Bearing: Toe Touch No Smoking: If you smoke, Please STOP! Call for help. Disposition: 01 Home, Self Care Condition: Stable Prescriptions: Ferrous Sulfate [Feosol] 325 mg PO DAILY #30 tab NIFEdipine [Procardia] 10 mg PO DAILY #30 cap Health Concerns: You were admitted to [facility] for a right proximal femur fracture for planned surgical repair. You also tested positive for COVID19 on admission. You were found to be anemic during your admission and treated with a blood transfusion. You had some difficulty swallowing and underwent an endoscopy to assess for food bolus which was not found. Plan of Treatment: You underwent an open reduction internal fixation of the right proximal femur on 08/18/[address] Rahman at [facility]. There were no known complications. You were found to be anemic with low hemoglobin prior to surgery. Your hemoglobin decreased after surgery to a level requiring transfusion of 1 unit of red blood cells. You tolerated this transfusion without issue and your hemoglobin level increased appropriately prior to discharge. 325 mg iron pills were given to you as your blood work showed low iron levels. Your hemoglobin was stable at discharge. During your admission you were also evaluated and treated by physical therapy with positive effect. You were monitored for signs and symptoms of COVID19 but remained asymptomatic during your admission. You were found to have difficulty swallowing and underwent an upper endoscopy with general surgery on 08/20/23. There was no food bolus seen and your diet was resumed as "minced and moistened" which you tolerated well without difficulty swallowing. You were started on 10 mg of nifedpine daily for esophageal spasms. Care Goals: Return to independent ambulation as per baseline. Assessment: Dr Rahman and I have discussed this with the patient who verbalizes understanding. Written instructions were provided as a reminder. Additional Instructions or Follow Up instructions: Follow up with orthopedic clinic on Thursday08/24/22. Follow up with your PCP regarding your anemia and difficulty swallowing. It is recommended to have a barium swallow fluoroscopic swallow study as an out patient. Take Tylenol 325 mg 3 pills every 8 hours for pain control. Take oxycodone 5 mg every 6 hours as needed for pain control for pain greater than 8 out of 10 on a pain scale. This was already prescribed to your pharmacy Take Tramadol 50 mg up to every 6 hours as needed for pain control. This was already prescribed to your pharmacy for your anticipated knee surgery. Continue aspirin 81 mg twice daily for 6 weeks. This is for blood clot prevention not for pain. Take ibuprofen 600 mg every 6 hours for pain control. Please refer to pain management schedule from total knee arthroplasty booklet provided by our clinic and call the office with any questions or concerns. Take 325 mg iron tablet once a day to increase your iron stores and improve your anemia. You will also take Pepcid or famotidine 20 mg daily for prevention of acid reflux given use of ibuprofen and aspirin. Take 1 tablet of 10 mg nifedipine daily for esophageal spasms. You are toe-touch weightbearing to the right lower extremity with a front wheeled walker. Please limit the amount of weight placed on the right lower extremity. Do not drive a vehicle at this time Eat in an upright position with plenty of fluids. Chop foods and moisten as needed. Monitor for any difficulty swallowing. Resume the vitamin D and calcium you take for osteoporosis given your hip fracture. These were not prescribed at your request since you already have them at home. Remain in isolation status for 10 days from positive COVID test. This would end on 08/27/23. Follow-up with: Jessee Rahman MD [Provider Admit Priv/Credential] - August Covarrubias MD [Provider Admit Priv/Credential] -
[2023-08-20] MEDS: ASPIRIN EC 81 MG TABLET PO SCH ×2 (09:09→21:25)
[2023-08-20] MEDS: FERROUS SULFATE 325 MG TABLET PO SCH (09:09)
[2023-08-20] MEDS: traMADol 50 MG TABLET PO SCH ×4 (09:09→23:40)
[2023-08-20] MEDS: CELECOXIB 100 MG CAPSULE PO SCH ×2 (09:10→21:25)
[2023-08-20] MEDS: CALCIUM CARB (OYSTER SHELL) 500 MG TABLET PO SCH (09:10)
[2023-08-20] MEDS: FAMOTIDINE 20 MG TABLET PO SCH ×2 (09:10→21:25)
[2023-08-20] MEDS: CHOLECALCIFEROL 400 UNIT TABLET PO SCH (09:10)
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
[2023-08-20] MEDS: GLUCOSAMINE HCL 1500 MG PO SCH ×2 (11:22→21:26)
[2023-08-20] MEDS: oxyCODONE 5 MG TABLET PO PRN ×3 (11:50→22:15)
--- NOTE | 2023-08-20 12:03 | PROVIDER PROGRESS NOTE ---
Assessment/Plan - Problem List (1) Femur fracture, right Qualifiers: Femur location: unspecified portion of femur Fracture type: closed Fracture morphology: unspecified fracture morphology Qualified Code(s): S72.91XA - Unspecified fracture of right femur, initial encounter for closed fracture Assessment/Plan: Today is POD #2 after hip surg was done 08/18/23 Since she is on scheduled Celebrex and scheduled ASA BID, I added Pepcid po BID to prevent a gastric ulcer Plan: Cont pain meds prn Cont activity w/ PT and OT (2) Odynophagia Conclusion/Plan: RN reported to me today that pt complains of pain at mid chest after swallowing solids, but that liquids are OK Plan: Change diet to clear liquids, I have ordered that Will get Gen Surg consult, she may need an EGD (3) Iron deficiency anemia Conclusion/Plan: Her B12 and Folate levels are good, but she has very low Iron stores Her Hgb was 8.8 >> 6.8 yesterday and she got 1U blood transfused. After transfusion, her Hgb 8.2 yesteday>> 7.8 today. Plan: Will recheck Hgb later today, transfuse again if <7. Cont her home po Iron supplement. Fe is better absorbed with vit C, but that would add to her risk for GERD and stress ulcer, since she is also getting ASA and Celebrex, so I did not resume her vit C po. (4) COVID-19 Conclusion/Plan: Recommend: She should remain in infectious isolation. Isolation can be stopped when advised by our Infec Prev RNGloria Monitor VS for desaturating and keep O2 sat > 92%, or give suppl O2 if sats drop. (5) Hypotension RESOLVED BP was <100 syst yesterday. [place] to be multifactorial: from iv narcotics, from being NPO, and from marked anemia. She got a U of blood transfused. I decreased freq of narcotics Plan: I ordered orthostatic VS be checked when working with PT and OT - Current Meds Current Meds: Current Medications Generic Name Dose Route Start Last Admin Trade Name Freq PRN Reason Stop Dose Admin Acetaminophen 1,000 mg 08/19/23 07:00 08/20/23 05:59 Acetaminophen 500 Mg Tablet PO 1,000 mg TID TORO Administration Aspirin 81 mg 08/19/23 09:00 08/20/23 09:09 Aspirin Ec 81 Mg Tablet PO 81 mg BID TORO Administration Calcium Carbonate/Glycine 500 mg 08/20/23 09:00 08/20/23 09:10 Calcium Carb (Oyster Shell) 500 Mg Tablet PO 500 mg DAILY TORO Administration Celecoxib 200 mg 08/18/23 21:00 08/20/23 09:10 Celecoxib 100 Mg Capsule PO 200 mg BID TORO Administration Cholecalciferol 800 unit 08/20/23 09:00 08/20/23 09:10 Cholecalciferol 400 Unit Tablet PO 800 unit DAILY TORO Administration Famotidine 20 mg 08/19/23 09:00 08/20/23 09:10 Famotidine 20 Mg Tablet PO 20 mg BID TORO Administration Ferrous Sulfate 325 mg 08/19/23 09:00 08/20/23 09:09 Ferrous Sulfate 325 Mg Tablet PO 325 mg DAILY TORO Administration Potassium Chloride/Sodium Chloride 1,000 mls @ 100 mls/hr 08/19/23 11:21 08/20/23 11:07 Normal Saline 0.9% W/20 Meq Kcl IV 100 mls/hr .Q10H TORO Administration Non-Formulary Medication 1,500 mg 08/19/23 09:00 08/20/23 11:22 Glucosamine Hcl [Glucosamine Hcl] PO Not Given BID [facility] Ondansetron HCl 4 mg 08/17/23 16:22 08/19/23 13:20 Ondansetron 4 Mg/2 Ml Vial IVP 4 mg Q6HR PRN Administration Nausea / Vomiting Oxycodone HCl 5 mg 08/20/23 07:34 08/20/23 11:50 Oxycodone 5 Mg Tablet PO 5 mg Q4HR PRN Administration PAIN >8 Sodium Chloride 10 ml 08/17/23 17:00 08/20/23 09:10 Sodium Chloride Flush 0.9% 10 Ml Syringe IVP 10 ml 0100,0900,1700 [facility] Administration Tramadol HCl 50 mg 08/20/23 07:35 08/20/23 09:09 Tramadol 50 Mg Tablet PO 50 mg Q6HR TORO Administration - Lab Result Fish Bone Diagrams: 08/20/23 14:38 08/17/23 13:44 - Additional Planning My Orders: My Active Orders 08/19/23 12:08 Orthostatic [Vital Signs - Orthostatic] [RC] QSHIFT 08/20/23 Consult [General Surgery Consult] [CONS] Routine 08/20/23 09:00 Calcium Carb (Oyster Shell) [Oysco-500] 500 mg PO DAILY Cholecalciferol [Vitamin D3] 800 unit PO DAILY 08/20/23 Lunch Clear Liquid Diet [DIET] 08/20/23 14:30 HGB - HEMOGLOBIN [HEME] Timed 08/21/23 05:00 CBC W/O DIFF (HEMOGRAM) [HEME] DAILYLAB 08/22/23 05:00 CBC W/O DIFF (HEMOGRAM) [HEME] DAILYLAB Subjective - Subjective Patient Reports: Pain (Pain mid-chest when swallows solid food) Objective Vital Signs: Vital Signs - 24 hr 08/19/23 08/19/23 08/19/23 13:40 14:26 14:30 Temperature 36.8 C Heart Rate [ 73 Brachial] Heart Rate [ 85 85 Sitting] Heart Rate [ 91 91 Standing] Heart Rate [ 83 83 Supine] Respiratory 16 Rate Blood Pressure 142/71 H [Right Brachial artery] Blood Pressure 148/71 H 148/71 H [Sitting] Blood Pressure 152/78 H 152/78 H [Standing] Blood Pressure 143/87 H 143/87 H [Supine] O2 Saturation 96 O2 Saturation [ 96 Supine] 08/19/23 08/19/23 08/20/23 16:00 21:00 00:08 Temperature 37.1 C 36.8 C 36.7 C Heart Rate [ 71 66 66 Brachial] Heart Rate [ Sitting] Heart Rate [ Standing] Heart Rate [ Supine] Respiratory 19 16 16 Rate Blood Pressure 148/75 H 131/58 H 117/61 [Right Brachial artery] Blood Pressure [Sitting] Blood Pressure [Standing] Blood Pressure [Supine] O2 Saturation 94 95 96 O2 Saturation [ Supine] 08/20/23 08/20/23 06:25 08:25 Temperature 36.6 C 36.6 C Heart Rate [ 74 69 Brachial] Heart Rate [ Sitting] Heart Rate [ Standing] Heart Rate [ Supine] Respiratory 16 16 Rate Blood Pressure 126/73 149/70 H [Right Brachial artery] Blood Pressure [Sitting] Blood Pressure [Standing] Blood Pressure [Supine] O2 Saturation 97 95 O2 Saturation [ Supine] Oxygen O2 Source Room air I&O (Last 24 Hrs): Intake and Output Totals x24h 08/18/23 08/19/23 08/20/23 23:59 23:59 23:59 Intake Total 2353.333 2705 2123.334 Output Total 1000 2550 1550 Balance 1353.333 155 573.334 General: Alert ((exam done remotely)) HEENT: Mucous membr. moist/pink Neuro: Alert, Non Focal Cardiovascular: Regular rate Respiratory: No respiratory distress Abdomen: No tenderness Extremities: Other (R hip tender) - Results Results: Laboratory Results WBC 6.5 x10^3/uL (4.8-10.8) 08/20/23 06:52 RBC 2.51 10^6/uL (4.20-5.40) L 08/20/23 06:52 Hgb 7.8 g/dL (12.0-16.0) L 08/20/23 06:52 Hct 24.3 % (37.0-47.0) L 08/20/23 06:52 MCV 96.8 fL (81.0-99.0) 08/20/23 06:52 MCH 31.1 pg (27.0-31.0) H 08/20/23 06:52 MCHC 32.1 g/dL (32.0-36.0) 08/20/23 06:52 RDW 14.9 % (12.0-15.0) 08/20/23 06:52 Plt Count 226 10^3/uL (130-450) 08/20/23 06:52 MPV 9.0 fL (7.9-10.8) 08/20/23 06:52 Neut # (Auto) 3.8 10^3/uL (1.5-6.6) 08/20/23 06:52 Lymph # (Auto) 1.2 10^3/uL (1.5-3.5) L 08/20/23 06:52 [place] # (Auto) 1.1 10^3/uL (0.0-1.0) H 08/20/23 06:52 Eos # (Auto) 0.4 10^3/uL (0.0-0.7) 08/20/23 06:52 Baso # (Auto) 0.0 10^3/uL (0.0-0.1) 08/20/23 06:52 Absolute Nucleated RBC 0.00 x10^3/uL 08/20/23 06:52 Nucleated RBC % 0.0 /100WBC 08/20/23 06:52 Sodium 139 mmol/L (135-145) 08/17/23 13:44 Potassium 3.6 mmol/L (3.5-4.5) 08/17/23 13:44 Chloride 103 mmol/L (101-111) 08/17/23 13:44 Carbon Dioxide 28 mmol/L (21-32) 08/17/23 13:44 Anion Gap 8.0 (6-13) 08/17/23 13:44 BUN 24 mg/dL (6-20) H 08/17/23 13:44 Creatinine 0.7 mg/dL (0.6-1.3) 08/17/23 13:44 Estimated GFR (MDRD) 81 (>89) L 08/17/23 13:44 Glucose 128 mg/dL (74-104) H 08/17/23 13:44 Calcium 9.0 mg/dL (8.5-10.3) 08/17/23 13:44 Iron 12 ug/dL (50-212) L 08/19/23 05:21 TIBC 209 ug/dL (250-450) L 08/19/23 05:21 % Saturation 6 % (20-50) L 08/19/23 05:21 Transferrin 149 mg/dL (203-362) L 08/19/23 05:21 Total Bilirubin 0.4 mg/dL (0.2-1.0) 08/17/23 13:44 AST 15 IU/L (10-42) 08/17/23 13:44 ALT 11 IU/L (10-60) 08/17/23 13:44 Alkaline Phosphatase 56 IU/L (42-121) 08/17/23 13:44 Total Protein 5.8 g/dL (6.4-8.9) L 08/17/23 13:44 Albumin 3.8 g/dL (3.2-5.5) 08/17/23 13:44 Globulin 2.0 g/dL (2.1-4.2) L 08/17/23 13:44 Albumin/Globulin Ratio 1.9 (1.0-2.2) 08/17/23 13:44 Vitamin B12 1216 pg/mL (180-914) H 08/19/23 05:21 Folate 15.9 ng/mL (5.90 - >24.8) 08/19/23 05:21 SARS-CoV-2 (PCR) DETECTED A 08/17/23 14:13 Blood Type A POSITIVE 08/19/23 07:44 Blood Type Recheck A POSITIVE 08/19/23 05:21 Antibody Screen NEGATIVE 08/19/23 07:44 Crossmatch IS Only See Detail 08/19/23 07:44 - Procedures Procedures: Procedures INSPECTION OF LOWER INTESTINAL TRACT, ENDO (09/01/19)
--- NOTE | 2023-08-20 13:09 | PROVIDER PROGRESS NOTE ---
Subjective - General Admit Date: 08/17/23 Procedure Date: 08/18/23 Post Op Days: 2 Procedure Performed: ORIF right proximal femur - Other Other Information/Narrative: Patient is alert, semirecumbent in bed accompanied by her She denies chest pain or dyspnea, congestion and sore throat. No nausea or vomiting. Tolerating oral diet Mccollum catheter in place she is awaiting physical therapy evaluation today but was out of bed with the assist of physical therapy yesterday using front wheel walker New onset of difficulty swallowing today, general surgery consulted Objective - Patient Data Reviewed Vital Signs: Yes Vital Signs: Vital Signs x48h Temp Pulse Resp BP Pulse Ox 08/20/23 08:25 36.6 C 69 16 149/70 H 95 08/20/23 06:25 36.6 C 74 16 126/73 97 Weight: Weight 08/18/23 08/19/23 08/20/23 23:59 23:59 23:59 Weight (kg) 52 kg Intake & Output: Intake and Output Totals x24h 08/18/23 08/19/23 08/20/23 23:59 23:59 23:59 Intake Total 2353.333 2705 2123.334 Output Total 1000 2550 1550 Balance 1353.333 155 573.334 - Lab Results Lab Results: 08/20/23 14:38 08/17/23 13:44 Other Lab Results: Lab Results x24hrs 08/20/23 08/19/23 08/19/23 Range/Units 06:52 15:12 07:44 WBC 6.5 6.8 (4.8-10.8) x10^3/uL RBC 2.51 L 2.60 L (4.20-5.40) 10^6/uL Hgb 7.8 L 8.2 L (12.0-16.0) g/dL Hct 24.3 L 25.0 L (37.0-47.0) % MCV 96.8 96.2 (81.0-99.0) fL MCH 31.1 H 31.5 H (27.0-31.0) pg MCHC 32.1 32.8 (32.0-36.0) g/dL RDW 14.9 14.3 (12.0-15.0) % Plt Count 226 231 (130-450) 10^3/uL MPV 9.0 8.9 (7.9-10.8) fL Neut # (Auto) 3.8 4.8 (1.5-6.6) 10^3/uL Lymph # (Auto) 1.2 L 0.7 L (1.5-3.5) 10^3/uL [place] # (Auto) 1.1 H 1.1 H (0.0-1.0) 10^3/uL Eos # (Auto) 0.4 0.2 (0.0-0.7) 10^3/uL Baso # (Auto) 0.0 0.0 (0.0-0.1) 10^3/uL Absolute Nucleated RBC 0.00 0.00 x10^3/uL Nucleated RBC % 0.0 0.0 /100WBC Crossmatch IS Only See Detail - Current Medications Current Medications: Current Medications Generic Name Dose Route Start Last Admin Trade Name Freq PRN Reason Stop Dose Admin Acetaminophen 1,000 mg 08/19/23 07:00 08/20/23 05:59 Acetaminophen 500 Mg Tablet PO 1,000 mg TID TORO Administration Aspirin 81 mg 08/19/23 09:00 08/20/23 09:09 Aspirin Ec 81 Mg Tablet PO 81 mg BID TORO Administration Calcium Carbonate/Glycine 500 mg 08/20/23 09:00 08/20/23 09:10 Calcium Carb (Oyster Shell) 500 Mg Tablet PO 500 mg DAILY TORO Administration Celecoxib 200 mg 08/18/23 21:00 08/20/23 09:10 Celecoxib 100 Mg Capsule PO 200 mg BID TORO Administration Cholecalciferol 800 unit 08/20/23 09:00 08/20/23 09:10 Cholecalciferol 400 Unit Tablet PO 800 unit DAILY TORO Administration Famotidine 20 mg 08/19/23 09:00 08/20/23 09:10 Famotidine 20 Mg Tablet PO 20 mg BID TORO Administration Ferrous Sulfate 325 mg 08/19/23 09:00 08/20/23 09:09 Ferrous Sulfate 325 Mg Tablet PO 325 mg DAILY TORO Administration Potassium Chloride/Sodium Chloride 1,000 mls @ 100 mls/hr 08/19/23 11:21 08/20/23 11:07 Normal Saline 0.9% W/20 Meq Kcl IV 100 mls/hr .Q10H TORO Administration Non-Formulary Medication 1,500 mg 08/19/23 09:00 08/20/23 11:22 Glucosamine Hcl [Glucosamine Hcl] PO Not Given BID [facility] Ondansetron HCl 4 mg 08/17/23 16:22 08/19/23 13:20 Ondansetron 4 Mg/2 Ml Vial IVP 4 mg Q6HR PRN Administration Nausea / Vomiting Oxycodone HCl 5 mg 08/20/23 07:34 08/20/23 11:50 Oxycodone 5 Mg Tablet PO 5 mg Q4HR PRN Administration PAIN >8 Sodium Chloride 10 ml 08/17/23 17:00 08/20/23 09:10 Sodium Chloride Flush 0.9% 10 Ml Syringe IVP 10 ml 0100,0900,1700 [facility] Administration Tramadol HCl 50 mg 08/20/23 07:35 08/20/23 09:09 Tramadol 50 Mg Tablet PO 50 mg Q6HR TORO Administration - Physical Exam Comments/Other: well-developed, well-nourished, 77-year-old female, no acute distress. Alert, oriented and pleasant No obvious respiratory distress Neurovascular intact to the right lower extremity. 4 Mepilex dressings are dry and intact without drainage or hematoma Impression/Plan - Problem List Problem List: 77 year old female with a past medical history of anemia is post operative day 2 from an open reduction internal fixation of the right proximal femur. She is recovering well with moderate pain control and not utilizing IV narcotics today. She is asymptomatic from COVID19 and anemia. New onset of dysphagia today awaiting general surgery evaluation. Plan: 1. ORIF Right Proximal Femur - DVT prophylaxis with 81 mg of aspirin twice daily for 6 weeks, SCDs in hospital - Physical and occupational therapy treatment. No hip precautions. PT recommending discharge home when medically stable - Pain control with scheduled tylenol, celebrex, tramadol and oxycodone and IV fentanyl as needed - Pepid orally every 12 hours for prevention of peptic ulcer disease - Partial weight bearing with front wheeled walker at all times - Follow up with orthopedic clinic within 1 week of discharge - Mepilex dressings to remain in place until follow up 2. Acute blood loss and Iron Deficiency Anemia - Hemoglobin today is 7.8 status post 1 unit of RBC transfused on 08/19/23 - Monitor daily labs - Transfuse if hemoglobin is less than 7 - She is asymptomatic - Iron supplement twice daily by mouth 3. COVID19 - Isloation precautions given COVID status - Monitor vital signs for oxygen desaturation, oxygen as needed - She continues to be asymptomatic today 4. Dysphagia - Consult to general surgery for further management - Clear liquid diet
--- NOTE | 2023-08-20 13:35 | PHARMACY PROGRESS NOTE ---
- Best Possible Medication History Admit Date and Time: 08/17/23 1707 Processed by: Pharmacy Medication History completed: Yes Patient Interview: Pt interview ONLY source As the person ultimately responsible for medication therapy, providers are able to order a medication from an existing home medication list in [facility] via the "Reconcile Routine" prior to Confirmation of that medication by student support advisor. Such practice is discouraged except when the physician, in their clinical judgment, deems that a medical need exists for a medication without regard to previous use.
--- NOTE | 2023-08-20 14:19 | ANESTHESIA ---
Pre-Anesthesia VS, & Labs - Diagnosis POSSIBLE FOOD BOLUS/ANEMIA - Procedure EGD Vital Signs: Temp Pulse Resp BP Pulse Ox O2 Flow Rate 36.6 C 69 16 149/70 H 95 2 08/20/23 08:25 08/20/23 08:25 08/20/23 08:25 08/20/23 08:25 08/20/23 08:25 08/18/23 18:15 Height: 5 ft 1 in Weight (kg): 52 kg Body Mass Index: 21.7 BMI Classification: Normal - NPO >8 hours Last Fluid Intake: SIPS H20 ABOUT 1300 Last Food Intake: TWO BITES OF EGG AT 0800 - Is Patient ?: No - Lab Results Current Lab Results: Laboratory Tests 08/20/23 06:52: WBC 6.5, RBC 2.51 L, Hgb 7.8 L, Hct 24.3 L, MCV 96.8, MCH 31.1 H , MCHC 32.1, RDW 14.9, Plt Count 226, MPV 9.0, Neut # (Auto) 3.8, Lymph # (Auto) 1.2 L, [place] # (Auto) 1.1 H, Eos # (Auto) 0.4, Baso # (Auto) 0.0, Absolute Nucleated RBC 0.00, Nucleated RBC % 0.0 08/19/23 15:12: WBC 6.8, RBC 2.60 L, Hgb 8.2 L, Hct 25.0 L, MCV 96.2, MCH 31.5 H , MCHC 32.8, RDW 14.3, Plt Count 231, MPV 8.9, Neut # (Auto) 4.8, Lymph # (Auto) 0.7 L, [place] # (Auto) 1.1 H, Eos # (Auto) 0.2, Baso # (Auto) 0.0, Absolute Nucleated RBC 0.00, Nucleated RBC % 0.0 08/19/23 07:44: Blood Type A POSITIVE, Antibody Screen NEGATIVE, Crossmatch IS Only See Detail 08/19/23 05:21: Blood Type Recheck A POSITIVE 08/19/23 05:21: WBC 6.3, RBC 2.13 L, Hgb 6.8 L*, Hct 21.3 L, MCV 100.0 H, MCH 31.9 H, MCHC 31.9 L, RDW 14.2, Plt Count 240, MPV 8.8, Neut # (Auto) 4.0, Lymph # (Auto) 1.0 L, [place] # (Auto) 1.0, Eos # (Auto) 0.2, Baso # (Auto) 0.0, Absolute Nucleated RBC 0.00, Nucleated RBC % 0.0 08/19/23 05:21: Iron 12 L, TIBC 209 L, % Saturation 6 L, Transferrin 149 L, Vitamin B12 1216 H, Folate 15.9 08/18/23 09:55: WBC 9.7, RBC 2.83 L, Hgb 8.8 L, Hct 27.7 L, MCV 97.9, MCH 31.1 H , MCHC 31.8 L, RDW 14.0, Plt Count 303, MPV 8.6, Neut # (Auto) 7.0 H, Lymph # (Auto) 1.3 L, [place] # (Auto) 1.4 H, Eos # (Auto) 0.1, Baso # (Auto) 0.0, Absolute Nucleated RBC 0.00, Nucleated RBC % 0.0 08/17/23 16:49: WBC 11.3 H, RBC 3.31 L, Hgb 10.2 L, Hct 32.3 L, MCV 97.6, MCH 30.8, MCHC 31.6 L, RDW 13.7, Plt Count 360, MPV 8.7, Neut # (Auto) 9.6 H, Lymph # (Auto) 0.6 L, [place] # (Auto) 1.0, Eos # (Auto) 0.0, Baso # (Auto) 0.0, Absolute Nucleated RBC 0.00, Nucleated RBC % 0.0 08/17/23 13:44: Sodium 139, Potassium 3.6, Chloride 103, Carbon Dioxide 28, Anion Gap 8.0, BUN 24 H, Creatinine 0.7, Estimated GFR (MDRD) 81 L, Glucose 128 H, Calcium 9.0, Total Bilirubin 0.4, AST 15, ALT 11, Alkaline Phosphatase 56, Total Protein 5.8 L, Albumin 3.8, Globulin 2.0 L, Albumin/Globulin Ratio 1.9 08/17/23 13:44: WBC 10.9 H, RBC 3.54 L, Hgb 10.9 L, Hct 33.8 L, MCV 95.5, MCH 30.8, MCHC 32.2, RDW 13.8, Plt Count 372, MPV 8.8, Neut # (Auto) 8.4 H, Lymph # (Auto) 1.2 L, [place] # (Auto) 1.1 H, Eos # (Auto) 0.1, Baso # (Auto) 0.0, Absolute Nucleated RBC 0.00, Nucleated RBC % 0.0 Fish Bones: 08/20/23 06:52 08/17/23 13:44 Home Medications and Allergies Home Medications: Ambulatory Orders Cyanocobalamin (Vitamin B-12) [Vitamin B12] 1,000 mcg PO DAILY 08/20/23 Meloxicam, Submicronized [Meloxicam] 10 mg PO DAILY 08/20/23 Active Medications Acetaminophen (Acetaminophen 500 Mg Tablet) 1,000 mg PO TID [facility] Last Admin: 08/20/23 05:59 Dose: 1,000 mg Aspirin (Aspirin Ec 81 Mg Tablet) 81 mg PO BID [facility] Last Admin: 08/20/23 09:09 Dose: 81 mg Calcium Carbonate/Glycine (Calcium Carb (Oyster Shell) 500 Mg Tablet) 500 mg PO DAILY [facility] Last Admin: 08/20/23 09:10 Dose: 500 mg Celecoxib (Celecoxib 100 Mg Capsule) 200 mg PO BID [facility] Last Admin: 08/20/23 09:10 Dose: 200 mg Cholecalciferol (Cholecalciferol 400 Unit Tablet) 800 unit PO DAILY [facility] Last Admin: 08/20/23 09:10 Dose: 800 unit Docusate Sodium (Docusate Sodium 100 Mg Capsule) 100 mg PO BID PRN PRN Reason: Constipation Famotidine (Famotidine 20 Mg Tablet) 20 mg PO BID [facility] Last Admin: 08/20/23 09:10 Dose: 20 mg Fentanyl (Fentanyl 250 Mcg/5 Ml Vial) 25 mcg IVP Q4HR PRN PRN Reason: Severe Breakthrough pain(8-10) Ferrous Sulfate (Ferrous Sulfate 325 Mg Tablet) 325 mg PO DAILY [facility] Last Admin: 08/20/23 09:09 Dose: 325 mg Potassium Chloride/Sodium Chloride (Normal Saline 0.9% W/20 Meq Kcl) 1,000 mls @ 100 mls/hr IV .Q10H [facility] Last Admin: 08/20/23 11:07 Dose: 100 mls/hr Non-Formulary Medication (Glucosamine Hcl [Glucosamine Hcl]) 1,500 mg PO BID [facility] Last Admin: 08/20/23 11:22 Dose: Not Given Ondansetron HCl (Ondansetron 4 Mg/2 Ml Vial) 4 mg IVP Q6HR PRN PRN Reason: Nausea / Vomiting Last Admin: 08/19/23 13:20 Dose: 4 mg Oxycodone HCl (Oxycodone 5 Mg Tablet) 5 mg PO Q4HR PRN PRN Reason: PAIN >8 Last Admin: 08/20/23 11:50 Dose: 5 mg Sodium Chloride (Sodium Chloride Flush 0.9% 10 Ml Syringe) 10 ml IVP PRN PRN PRN Reason: NEEDED PER PROVIDER ORDERS Sodium Chloride (Sodium Chloride Flush 0.9% 10 Ml Syringe) 10 ml IVP 0100 ,0900,1700 [facility] Last Admin: 08/20/23 09:10 Dose: 10 ml Tramadol HCl (Tramadol 50 Mg Tablet) 50 mg PO Q6HR [facility] Last Admin: 08/20/23 09:09 Dose: 50 mg Cyanocobalamin (Vitamin B-12) [Vitamin B12] 1,000 mcg PO DAILY 08/20/23 Meloxicam, Submicronized [Meloxicam] 10 mg PO DAILY 08/20/23 Allergies/Adverse Reactions: Allergies Allergy/AdvReac Type Severity Reaction Status Date / Time bee venom protein (honey bee) Allergy Severe Anaphylaxis Verified 08/17/23 13:01 Anes History & Medical History - Anesthetic History Anesthesia Complications: reports: No previous complications, Post-Operative Nausea/Vomiting (REPORTS PONV WITH GA, TOLERATED SAB FOR FEMUR WELL) Family history of Anesthesia Complications: Denies Family history of Malignant Hyperthermia: Denies - Medical History Cardiovascular: reports: None Pulmonary: reports: None Gastrointestinal: reports: None Urinary: reports: None Neuro: reports: None Musculoskeletal: reports: Osteoarthritis, Osteopenia Endocrine/Autoimmune: reports: None Blood Disorders: reports: None, Anemia (SEE LABS/ TRANSFUSED ONE UNIT PRBC YESTERDAY,) Skin: reports: None Smoking Status: Never smoker - Surgical History General: reports: Colonoscopy Orthopedic: reports: Knee replacement, Other Exam General: Alert Dental: WNL Mouth Openin Fingerbreadth Neck Mobility: Normal Mallampati classification: II Thyromental Distance: 4-6 cm Respiratory: Lungs clear, Other (INCIDEDENTAL COVID FINDING UPON ADMISSION, DENIES SOB OR COVID SYMPTOMS) Cardiovascular: Regular rate Abdomen: Other (REPORTS A FEELING OF FOOD BEING CAUGHT IN HER THROAT) Plan Anesthesia Type: General, IV Regional, Other (DISCUSSED MAC OR GA/ETT, TO BE DECIDED BY COMPLIANCE AUDITOR AND SURGEON, PT AGREES TO EITHER) Consent for Procedure(s) Verified and Reviewed: Yes Code Status: Attempt Resuscitation ASA classification: 2-Mild systemic disease Is this case an emergency?: No
--- NOTE | 2023-08-20 15:39 | CONSULTATION NOTE ---
Surgery Consult - Admit Date Hospital Admission Date: 08/17/23 - Home Meds/Allergies Home Medications: Patient History Medication Instructions Recorded Confirmed Cyanocobalamin (Vitamin B-12) 1,000 mcg PO DAILY 08/20/23 08/20/23 [Vitamin B12] Meloxicam, Submicronized 10 mg PO DAILY 08/20/23 08/20/23 [Meloxicam] Allergies/Adverse Reactions: Allergies Allergy/AdvReac Type Severity Reaction Status Date / Time bee venom protein (honey bee) Allergy Severe Anaphylaxis Verified 08/17/23 13:01 - Vital Signs Vital Signs: Last Vital Signs Temp 97.9 F 08/20/23 08:25 Pulse 69 08/20/23 08:25 Resp 16 08/20/23 08:25 BP 149/70 H 08/20/23 08:25 Pulse Ox 95 08/20/23 08:25 O2 Flow Rate 2 08/18/23 18:15 Intake & Output: Intake & Output 08/17/23 08/18/23 08/19/23 08/20/23 23:59 23:59 23:59 23:59 Intake Total 100 2353.333 2705 2363.334 Output Total 200 1000 2550 2900 Balance -100 1353.333 155 -536.666 - Lab Results Result Diagrams: 08/20/23 14:38 08/17/23 13:44 - Consultation Note Consultation Note: General Surgery Consultation Note Assessment: 1) Dysphagia, I suspect it is due to esophageal narrowing from chronic GERD or neoplasm Recommendation: 1) NPO 2) EGD later today <><><><><><><><><><> Reason for Consultation Painful swallowing; pills and solid food getting stuck HPI Jaylene is a 77 year old female who has had worsening trouble with swallowing solid food. Pills, scrambled eggs, and banana are some of the foods that she has ingested the last 24 hours that seem to get stuck in her lower esophagus and eventually pass with some difficulty. She is able to swallow liquids and her own saliva. Jaylene is 2 days s/p ORIF right femur fracture that occurred due to a fall. She denies swallowing difficulty prior to the fall/surgery. She admits to recent weight loss. She claims to have GERD but has never had an EGD and does n ot take antacids regularly. Past Medical History Denies HTN, CAD, COPD Osteoarthritis Past Surgical History CS, Right femur ORIF Current Medications See "Medication" section Allergies See "Allergy" section ROS Pertinent positives Pain and incomplete swallowing of solid food All other reviewed systems negative Physical Examination Vital Signs: See "Vital Signs" section BMI: 22 GENERAL APPEARANCE: Normal development, normal body habitus, normal grooming PSYCHIATRIC: AAO; Comfortable EYES: Pupils equal, round and reactive to light, sclera anicteric EARS, NOSE, MOUTH, THROAT: Hearing normal, Oral mucous membranes moist and with out lesions; NECK: No crepitus, lymphadenopathy, or thyromegaly LUNGS: Clear to auscultation without wheezing; No use of accessory muscles to breathe CARDIOVASCULAR: Heart-NSR without murmurs; Palpable carotid arteries - no bruits; Aorta, Femoral, Pedal pulses palpable; Peripheral edema [] ABD: Soft, non-distended or tender SKIN: Anicteric; No rashes, lesions, Ulcerations Labs See "Labs" section Imaging N/A Surendra Wilkins MD, FACS General Surgery Service [phone]
--- NOTE | 2023-08-20 16:25 | OPERATIVE REPORT ---
Operative Report - General Admit Date: 08/17/23 - Other Other Information/Narrative: General Surgery Brief Procedure Note - See "Prov[place]" for full Procedure Note Procedure: EGD/Dilation to 38F ([place]) Esophagus, stomach and duodenum were normal. No tumors, strictures, webs, or esophagitis seen. Recommendation: Eat slowly with plenty of water; Chew food thoroughly; Eat sitting up; Consider fluoroscopic exam of the esophagus if symptoms persist. Consider calcium channel blockers if esophageal spasm identified Surendra Wilkins MD, FACS General Surgery Service
[2023-08-21] MEDS: oxyCODONE 5 MG TABLET PO PRN ×2 (03:43→15:56)
[2023-08-21 06:20] LABS: HCT - HEMATOCRIT 23.8 % (37.0-47.0); HGB - HEMOGLOBIN 7.7 g/dL (12.0-16.0); MEAN CORPUSCULAR HEMOGLOBIN 31.7 pg (27.0-31.0); MEAN CORPUSCULAR HGB CONC 32.4 g/dL (32.0-36.0); MEAN CORPUSCULAR VOLUME 97.9 fL (81.0-99.0); MEAN PLATELET VOLUME 8.8 fL (7.9-10.8); RED BLOOD COUNT 2.43 10^6/uL (4.20-5.40); RED CELL DISTRIBUTION WIDTH 14.3 % (12.0-15.0); WHITE BLOOD COUNT 7.6 x10^3/uL (4.8-10.8)
[2023-08-21] MEDS: traMADol 50 MG TABLET PO SCH ×2 (06:24→11:39)
[2023-08-21] MEDS: ACETAMINOPHEN 500 MG TABLET PO SCH ×2 (06:24→14:25)
[2023-08-21] MEDS: NS W/20 MEQ KCL 1,000 ML IV SCH (07:29)
[2023-08-21] MEDS: FAMOTIDINE 20 MG TABLET PO SCH (08:58)
[2023-08-21] MEDS: FERROUS SULFATE 325 MG TABLET PO SCH (08:58)
[2023-08-21] MEDS: CHOLECALCIFEROL 400 UNIT TABLET PO SCH (08:58)
[2023-08-21] MEDS: CELECOXIB 100 MG CAPSULE PO SCH (08:58)
[2023-08-21] MEDS: ASPIRIN EC 81 MG TABLET PO SCH (08:58)
[2023-08-21] MEDS: CALCIUM CARB (OYSTER SHELL) 500 MG TABLET PO SCH (08:58)
[2023-08-21] MEDS: SODIUM CHLORIDE FLUSH 0.9% 10 ML SYRINGE IVP SCH (08:59)
[2023-08-21] MEDS: GLUCOSAMINE HCL 1500 MG PO SCH (09:01)
[2023-08-21] MEDS ORDERED: NIFEdipine 10 MG CAPSULE PO ONE (10:24)
--- NOTE | 2023-08-21 11:48 | ANESTHESIA POST OP EVALUATION ---
Anesthesia Post Eval - Post Anesthesia Eval Vitals: Last Vital Signs Temp 38.6 C H 08/21/23 08:25 Pulse 72 08/21/23 08:25 Resp 16 08/21/23 08:25 BP 134/59 H 08/21/23 08:25 Pulse Ox 96 08/21/23 08:25 O2 Flow Rate 2 08/18/23 18:15 CV Function Including HR & BP: Stable Pain Control: Satisfactory Nausea & Vomiting: Negative Mental Status: Baseline Respiratory Status: Airway Patent Hydration Status: Satisfactory Anesthesia Complications: None
[2023-08-21] MEDS ORDERED: fentaNYL 100 MCG/2 ML VIAL IVP PRN (11:53)
[2023-08-21 12:12] VITALS: BP 113/53; O2SAT 93
--- NOTE | 2023-08-21 12:29 | PROVIDER PROGRESS NOTE ---
Assessment/Plan - Problem List (1) Femur fracture, right Qualifiers: Femur location: unspecified portion of femur Fracture type: closed Fracture morphology: unspecified fracture morphology Qualified Code(s): S72.91XA - Unspecified fracture of right femur, initial encounter for closed fracture Assessment/Plan: Today is POD #3 after hip surg was done 08/18/23 Since she is on scheduled Celebrex and scheduled ASA BID, I added Pepcid po BID to prevent a gastric ulcer Plan: Cont pain meds prn Cont activity w/ PT and OT. PT said she is stable to go home w/ and has equipment needed. (2) Odynophagia Conclusion/Plan: Improved Yesterday pt had pain at mid chest after swallowing solids, but liquids were OK. Gen Gurg consult was ordered for and EGD, and Dr Wilkins did EGD yesterday afternoon and found no ulcer, no stricture, no esoph narrowing. He thinks she must have esophageal spasm and advised starting Nifedical Plan: Start Nifedipine 10 mg po daily today. I am not ordering Nifedipine ER 30 mg is the lowest ER dose, which may drop her BP, since she is not a hypertensive pt. Advance diet today and if she tolerates that, she can be discharged. She needs an outpt Barium swallow eval under flouroscopy imaging (which we do not have here, so should be ordered at [facility], by pt's PCP). Since no ulcer or bleed was found, OK to use ASA after DCh This was discussed with Ortho team today. (3) Iron deficiency anemia Conclusion/Plan: Her B12 and Folate levels are good, but she has very low Iron stores Her Hgb was 8.8 >> 6.8 and she got 1U blood transfused>> Hgb 8.2>> 7.8>> 7.7 today Plan: Will recheck Hgb later today, and if it is reasonably stable she can be discharged on new Iron replacement. Discussed this w/ Ortho Team today. (4) COVID-19 Conclusion/Plan: She has not desaturated or needed Remdesivir or Decadron Recommend: She should remain in infectious isolation for 10 days from (+) test. This was discussed with Ortho team today to include in her discharge instructions. (5) Hypotension RESOLVED BP was <100 syst, felt to be multifactorial: from iv narcotics, from being NPO, and from marked anemia. BP improved after she got a U of blood transfused and I decreased freq of narcotics - Current Meds Current Meds: Current Medications Generic Name Dose Route Start Last Admin Trade Name Freq PRN Reason Stop Dose Admin Acetaminophen 1,000 mg 08/19/23 07:00 08/21/23 06:24 Acetaminophen 500 Mg Tablet PO 1,000 mg TID TORO Administration Aspirin 81 mg 08/19/23 09:00 08/21/23 08:58 Aspirin Ec 81 Mg Tablet PO 81 mg BID TORO Administration Calcium Carbonate/Glycine 500 mg 08/20/23 09:00 08/21/23 08:58 Calcium Carb (Oyster Shell) 500 Mg Tablet PO 500 mg DAILY TORO Administration Celecoxib 200 mg 08/18/23 21:00 08/21/23 08:58 Celecoxib 100 Mg Capsule PO 200 mg BID TORO Administration Cholecalciferol 800 unit 08/20/23 09:00 08/21/23 08:58 Cholecalciferol 400 Unit Tablet PO 800 unit DAILY TORO Administration Famotidine 20 mg 08/19/23 09:00 08/21/23 08:58 Famotidine 20 Mg Tablet PO 20 mg BID TORO Administration Ferrous Sulfate 325 mg 08/19/23 09:00 08/21/23 08:58 Ferrous Sulfate 325 Mg Tablet PO 325 mg DAILY TORO Administration Potassium Chloride/Sodium Chloride 1,000 mls @ 100 mls/hr 08/19/23 11:21 08/21/23 07:29 Normal Saline 0.9% W/20 Meq Kcl IV 100 mls/hr .Q10H TORO Administration Non-Formulary Medication 1,500 mg 08/19/23 09:00 08/21/23 09:01 Glucosamine Hcl [Glucosamine Hcl] PO Not Given BID TORO Ondansetron HCl 4 mg 08/17/23 16:22 08/19/23 13:20 Ondansetron 4 Mg/2 Ml Vial IVP 4 mg Q6HR PRN Administration Nausea / Vomiting Oxycodone HCl 5 mg 08/20/23 07:34 08/21/23 03:43 Oxycodone 5 Mg Tablet PO 5 mg Q4HR PRN Administration PAIN >8 Sodium Chloride 10 ml 08/17/23 17:00 08/21/23 08:59 Sodium Chloride Flush 0.9% 10 Ml Syringe IVP 10 ml 0100,0900,1700 TORO Administration Tramadol HCl 50 mg 08/20/23 07:35 08/21/23 11:39 Tramadol 50 Mg Tablet PO 50 mg Q6HR TORO Administration - Lab Result Fish Bone Diagrams: 08/21/23 06:04 08/17/23 13:44 - Additional Planning My Orders: My Active Orders 08/21/23 Lunch DIET [Dysphagia - Minced and Moist] [DIET] 08/21/23 11:53 fentaNYL 25 mcg IVP Q4HR PRN 08/21/23 14:00 HGB - HEMOGLOBIN [HEME] Timed 08/21/23 Dinner DIET [Soft Mechanical Diet] [DIET] 08/22/23 05:00 BMP - BASIC METABOLIC PANEL [CHEM] DAILYLAB CBC W/O DIFF (HEMOGRAM) [HEME] DAILYLAB 08/22/23 09:00 NIFEdipine [Procardia] 10 mg PO DAILY Subjective - Subjective Patient Reports: Other (Knee hurts more than R femur) Objective Vital Signs: Vital Signs - 24 hr 08/20/23 08/20/23 08/20/23 16:47 21:00 23:38 Temperature 36.6 C 36.7 C 36.7 C Heart Rate [ 71 73 62 Brachial] Respiratory 16 16 16 Rate Blood Pressure 150/71 H 136/64 H [Left Brachial artery] Blood Pressure 135/62 H [Right Brachial artery] O2 Saturation 97 95 96 08/21/23 08/21/23 06:22 08:25 Temperature 36.7 C 38.6 C H Heart Rate [ 72 72 Brachial] Respiratory 16 16 Rate Blood Pressure [Left Brachial artery] Blood Pressure 145/64 H 134/59 H [Right Brachial artery] O2 Saturation 96 96 Oxygen O2 Source Room air I&O (Last 24 Hrs): Intake and Output Totals x24h 08/19/23 08/20/23 08/21/23 23:59 23:59 23:59 Intake Total 4738 4113.334 1038.333 Output Total 8658 7213 650 Balance 155 -311.666 388.333 General: Alert (exam done remotely) HEENT: Mucous membr. moist/pink Cardiovascular: Regular rate Respiratory: No respiratory distress - Results Results: Laboratory Results WBC 7.6 x10^3/uL (4.8-10.8) 08/21/23 06:04 RBC 2.43 10^6/uL (4.20-5.40) L 08/21/23 06:04 Hgb 7.7 g/dL (12.0-16.0) L 08/21/23 06:04 Hct 23.8 % (37.0-47.0) L 08/21/23 06:04 MCV 97.9 fL (81.0-99.0) 08/21/23 06:04 MCH 31.7 pg (27.0-31.0) H 08/21/23 06:04 MCHC 32.4 g/dL (32.0-36.0) 08/21/23 06:04 RDW 14.3 % (12.0-15.0) 08/21/23 06:04 Plt Count 250 10^3/uL (130-450) 08/21/23 06:04 MPV 8.8 fL (7.9-10.8) 08/21/23 06:04 Neut # (Auto) 3.8 10^3/uL (1.5-6.6) 08/20/23 06:52 Lymph # (Auto) 1.2 10^3/uL (1.5-3.5) L 08/20/23 06:52 Sunflower # (Auto) 1.1 10^3/uL (0.0-1.0) H 08/20/23 06:52 Eos # (Auto) 0.4 10^3/uL (0.0-0.7) 08/20/23 06:52 Baso # (Auto) 0.0 10^3/uL (0.0-0.1) 08/20/23 06:52 Absolute Nucleated RBC 0.00 x10^3/uL 08/20/23 06:52 Nucleated RBC % 0.0 /100WBC 08/20/23 06:52 Sodium 139 mmol/L (135-145) 08/17/23 13:44 Potassium 3.6 mmol/L (3.5-4.5) 08/17/23 13:44 Chloride 103 mmol/L (101-111) 08/17/23 13:44 Carbon Dioxide 28 mmol/L (21-32) 08/17/23 13:44 Anion Gap 8.0 (6-13) 08/17/23 13:44 BUN 24 mg/dL (6-20) H 08/17/23 13:44 Creatinine 0.7 mg/dL (0.6-1.3) 08/17/23 13:44 Estimated GFR (MDRD) 81 (>89) L 08/17/23 13:44 Glucose 128 mg/dL (74-104) H 08/17/23 13:44 Calcium 9.0 mg/dL (8.5-10.3) 08/17/23 13:44 Iron 12 ug/dL (50-212) L 08/19/23 05:21 TIBC 209 ug/dL (250-450) L 08/19/23 05:21 % Saturation 6 % (20-50) L 08/19/23 05:21 Transferrin 149 mg/dL (203-362) L 08/19/23 05:21 Total Bilirubin 0.4 mg/dL (0.2-1.0) 08/17/23 13:44 AST 15 IU/L (10-42) 08/17/23 13:44 ALT 11 IU/L (10-60) 08/17/23 13:44 Alkaline Phosphatase 56 IU/L (42-121) 08/17/23 13:44 Total Protein 5.8 g/dL (6.4-8.9) L 08/17/23 13:44 Albumin 3.8 g/dL (3.2-5.5) 08/17/23 13:44 Globulin 2.0 g/dL (2.1-4.2) L 08/17/23 13:44 Albumin/Globulin Ratio 1.9 (1.0-2.2) 08/17/23 13:44 Vitamin B12 1216 pg/mL (180-914) H 08/19/23 05:21 Folate 15.9 ng/mL (5.90 - >24.8) 08/19/23 05:21 SARS-CoV-2 (PCR) DETECTED A 08/17/23 14:13 Blood Type A POSITIVE 08/19/23 07:44 Blood Type Recheck A POSITIVE 08/19/23 05:21 Antibody Screen NEGATIVE 08/19/23 07:44 Crossmatch IS Only See Detail 08/19/23 07:44 - Procedures Procedures: Procedures INSPECTION OF LOWER INTESTINAL TRACT, ENDO (09/01/19)
--- NOTE | 2023-08-21 16:28 | XRAY Report ---
PROCEDURE: OR C-Arm Procedure INDICATIONS: RIGHT FEMORAL NAILING FLUORO TIME: 0.2 TECHNIQUE: Intraoperative images of right hip/femoral fixation. COMPARISON: None. FINDINGS: Intraoperative images demonstrate an fixation of the right femur. Hardware is intact. There is good a natomic alignment. Fracture lucencies and fragments are noted. IMPRESSION: Intraoperative right femoral fixation. Reviewed by: Jordyn Nunez MD on 08/21/2023 4:26 PM PST Approved by: Jordyn Nunez MD on 08/21/2023 4:26 PM [facility] Station ID: [id number]
[2023-08-22] MEDS ORDERED: NIFEdipine 10 MG CAPSULE PO SCH (09:00)
== END 2023-08-21 16:05 | disposition home or self-care (01) | DRG 480 ==
LOC: EDUNIT# → ED 12:55 → MS3 17:04 → MS2 08-18 15:28
PROVIDERS: ADMIT Orthopaedic Surgery; ATTEND Physician Assistant Surgical
PROC: 8E0ZXY6 Isolation (ICD-10-PCS; 2023-08-18)
PROC: 0QS806Z Reposition Right Femoral Shaft with Intramedullary Internal Fixation Device, Open Approach (ICD-10-PCS; principal; 2023-08-18 13:00)
PROC: 30233N1 Transfusion of Nonautologous Red Blood Cells into Peripheral Vein, Percutaneous Approach (ICD-10-PCS; 2023-08-19)
PROC: 0D738ZZ Dilation of Lower Esophagus, Via Natural or Artificial Opening Endoscopic (ICD-10-PCS; 2023-08-20)
DX: S72.351A Displaced comminuted fracture of shaft of right femur, initial encounter for closed fracture (principal); U07.1 COVID-19; D62 Acute posthemorrhagic anemia; W01.0XXA Fall on same level from slipping, tripping and stumbling without subsequent striking against object, initial encounter; R07.9 Chest pain, unspecified; Y92.009 Unspecified place in unspecified non-institutional (private) residence as the place of occurrence of the external cause; D50.9 Iron deficiency anemia, unspecified; R13.10 Dysphagia, unspecified; I95.9 Hypotension, unspecified; M17.12 Unilateral primary osteoarthritis, left knee; M16.0 Bilateral primary osteoarthritis of hip; M81.0 Age-related osteoporosis without current pathological fracture; I10 Essential (primary) hypertension; K21.9 Gastro-esophageal reflux disease without esophagitis; J44.9 Chronic obstructive pulmonary disease, unspecified
CPT/HCPCS: 36415; 71045; 72192; 73502; 73552; 80053; 82607; 82746; 83540; 84466; 85018; 85025; 85027; 86850; 86900; 86901; 86920; 87635; 93005; 96374; 96375; 96376; 97162; 97166; 97530; 97535; 99284; 99285; A9270; C1713; J1170; J2372; J2765; J2795; J3010; J3370; J7120; P9040

== ENCOUNTER 2023-09-17 08:00 | Outpatient (CLI) | payer MEDICARE ==
--- NOTE | 2023-09-17 15:21 | XRAY Report ---
PROCEDURE: Femur RT INDICATIONS: RIGHT FEMUR FRACTURE TECHNIQUE: 4 views of the femur were acquired. COMPARISON: Right femur x-ray 08/18/2023 FINDINGS: Bones: Redemonstration of intramedullary ирина and screw fixation of a proximal femoral shaft fracture with mild displacement. The degree of displacement on the proximal femoral hardware appears increase d compared to prior. No suspicious bony lesions. Soft tissues: No suspicious soft tissue calcifications or masses. IMPRESSION: Intramedullary ирина and screw fixation of a proximal femoral shaft fracture. The degree of displacemen t of the femoral fracture appears mildly increased compared to prior, however this may be positional and clinical correlation and attention on follow-up is recommended. Reviewed by: Goldy Rinaldi MD on 09/17/2023 3:19 PM PST Approved by: Goldy Rinaldi MD on 09/17/2023 3:19 PM PST Station ID: [id number]
== END 2023-09-17 23:59 | disposition home or self-care (01) ==
LOC: DI.WOS 08:00
PROVIDERS: ATTEND Orthopaedic Surgery
DX: S72.21XD Displaced subtrochanteric fracture of right femur, subsequent encounter for closed fracture with routine healing (principal)

== ENCOUNTER 2023-10-07 07:21 | Outpatient (CLI) | payer MEDICARE ==
[2023-10-07 11:46] LABS: ABSOLUTE RETICS # AUTO 0.034 10^6/uL (0.020-0.110); BASOPHILS # (AUTO) 0.1 10^3/uL (0.0-0.1); BASOPHILS % (AUTO) 1.3 %; EOSINOPHILS # (AUTO) 0.6 10^3/uL (0.0-0.7); EOSINOPHILS % (AUTO) 9.7 %; HCT - HEMATOCRIT 35.6 % (37.0-47.0); HGB - HEMOGLOBIN 11.1 g/dL (12.0-16.0); LYMPHOCYTES # (AUTO) 1.2 10^3/uL (1.5-3.5); LYMPHOCYTES % (AUTO) 18.7 %; MEAN CORPUSCULAR HEMOGLOBIN 31.5 pg (27.0-31.0); MEAN CORPUSCULAR HGB CONC 31.2 g/dL (32.0-36.0); MEAN CORPUSCULAR VOLUME 101.1 fL (81.0-99.0); MEAN PLATELET VOLUME 9.4 fL (7.9-10.8); MONOCYTES # (AUTO) 0.6 10^3/uL (0.0-1.0); MONOCYTES % (AUTO) 10.1 %; NEUTROPHILS # (AUTO) 3.7 10^3/uL (1.5-6.6); NEUTROPHILS % (AUTO) 59.9 %; PLT - PLATELET COUNT 440 10^3/uL (130-450); RED BLOOD COUNT 3.52 10^6/uL (4.20-5.40); RED CELL DISTRIBUTION WIDTH 14.4 % (12.0-15.0); RETICULOCYTE COUNT % (AUTO) 0.96 % (0.5-2.3); WHITE BLOOD COUNT 6.2 x10^3/uL (4.8-10.8)
[2023-10-07 18:49] LABS: FERRITIN 37.5 ng/mL (11.0-306.8)
== END 2023-10-07 07:22 | disposition home or self-care (01) ==
LOC: LAB.N 07:21
PROVIDERS: ATTEND Family Medicine
DX: D62 Acute posthemorrhagic anemia (principal)
CPT/HCPCS: 36415; 82607; 82728; 82746; 83540; 84466; 85025; 85045

== ENCOUNTER 2023-10-20 10:15 | Outpatient (CLI) | payer MEDICARE ==
--- NOTE | 2023-10-20 16:04 | XRAY Report ---
PROCEDURE: Femur RT INDICATIONS: RIGHT FEMUR ORIF TECHNIQUE: 4 views of the femur were acquired. COMPARISON: 09/17/2023 FINDINGS: Bones: Stable appearance of intramedullary ирина and screw fixation of a proximal femoral shaft fractu re with mild displacement. Stable alignment compared to prior. No suspicious bony lesions. Soft tissues: No suspicious soft tissue calcifications or masses. IMPRESSION: Stable postsurgical changes and alignment from right proximal femoral fracture ORIF. Reviewed by: Goldy Rinaldi MD on 10/20/2023 4:03 PM PDT Approved by: Goldy Rinaldi MD on 10/20/2023 4:03 PM PDT Station ID: [id number]
== END 2023-10-20 23:59 | disposition home or self-care (01) ==
LOC: DI.WOS 10:15
PROVIDERS: ATTEND Orthopaedic Surgery
DX: S72.21XD Displaced subtrochanteric fracture of right femur, subsequent encounter for closed fracture with routine healing (principal)

== ENCOUNTER 2023-12-01 10:04 | Outpatient (CLI) | payer MEDICARE ==
--- NOTE | 2023-12-01 12:20 | XRAY Report ---
PROCEDURE: Hip w/Pelvis 2-3V RT INDICATIONS: RIGHT FEMUR FRACTURE TECHNIQUE: AP view the pelvis and crosstable lateral view of the right hip. COMPARISON: Right femur radiographs 10/20/2023 and 09/17/2023 FINDINGS: Bones: Postsurgical changes again seen from right proximal femoral fracture fixation with an intrame dullary nail and proximal dynamic hip screw. Postsurgical alignment isn't significantly changed when compared to the radiographs from 10/20/2023. Postsurgical changes are also noted in the contralateral left femur. There is stenosis osteopenia. Remote prior left inferior pubic ramus fracture. Symmetric osteoarthrosis in the right hip. Degenerative changes also noted in the spine. Soft tissues: No suspicious soft tissue calcifications. IMPRESSION: Postsurgical changes again seen from right proximal femoral fracture fixation with unchanged alignmen t. Reviewed by: Fox Iraheta MD on 12/01/2023 12:18 PM PDT Approved by: Fox Iraheta MD on 12/01/2023 12:18 PM PDT Station ID: [id number]
--- NOTE | 2023-12-01 16:28 | XRAY Report ---
PROCEDURE: Femur 2+V RT (Weight Bearing) INDICATIONS: RIGHT FEMUR FRACTURE TECHNIQUE: 4 views of right femur were obtained. COMPARISON: 10/20/2023, 09/17/2023, 08/18/2023, 08/17/2023. FINDINGS: Stable postsurgical changes are again seen in right femur with intramedullary ирина and surgical screws in place. A comminuted and slightly displaced proximal femoral shaft/intertrochanteric fracture is s een unchanged from prior study. No evidence of hardware loosening or failure. No new fracture or disl ocation. Moderate to severe right hip and right knee joint osteoarthritic changes are seen. IMPRESSION: Stable postsurgical changes in right femur with stable right femoral alignment. No gross hardware loo sening or failure. No new fracture or dislocation. Moderate to severe right hip and right knee joint osteoarthritis. Reviewed by: Krystian Galan MD on 12/01/2023 4:26 PM PDT Approved by: Krystian Galan MD on 12/01/2023 4:26 PM PDT Station ID: [id number]
== END 2023-12-01 10:05 | disposition home or self-care (01) ==
LOC: DI 10:04
PROVIDERS: ATTEND Orthopaedic Surgery
DX: S72.21XD Displaced subtrochanteric fracture of right femur, subsequent encounter for closed fracture with routine healing (principal); M17.11 Unilateral primary osteoarthritis, right knee; M16.11 Unilateral primary osteoarthritis, right hip

== ENCOUNTER 2024-01-25 08:23 | Outpatient (CLI) | payer MEDICARE ==
--- NOTE | 2024-01-25 11:13 | XRAY Report ---
Hip w/Pelvis 2-3V RT HISTORY: 78 years of age, RIGHT FEMUR FRACTURE TECHNIQUE: Hip w/Pelvis 2-3V RT COMPARISON: 12/01/2023. FINDINGS/IMPRESSION: Cephalomedullary fixation of the right femur, partially visualized. Moderate disc space, chronic frac ture of the right lesser trochanter, unchanged. Severe degenerative change of the right hip. Intramed ullary ирина in the left proximal femur, partially visualized, and is unchanged from prior exam. Hetero topic ossification about the left greater trochanter. Healed fracture of the left inferior pubic raghu s, unchanged from prior exam. Osteopenia. Moderate degenerative changes of the right sacral joint. Mild degenerative change of the left sacral iliac joint. Reviewed by: Milagro Luu MD on 01/25/2024 11:11 AM PDT Approved by: Milagro Luu MD on 01/25/2024 11:11 AM PDT Station ID: [id number]
--- NOTE | 2024-01-25 11:22 | XRAY Report ---
Femur 2+V RT (Weight Bearing) HISTORY: 78 years of age, RIGHT FEMUR FRACTURE TECHNIQUE: Femur 2+V RT (Weight Bearing) COMPARISON: 12/01/2023. FINDINGS/IMPRESSION: Cephalomedullary fixation of a healing fracture in the right femur proximal diaphysis, in near-anatom ic alignment. There is mild periprosthetic lucency surrounding the most superior distal femur interlo cking screw, unchanged from prior exam. No screw fracture. Moderate displaced right lesser trochanteric fracture, unchanged from prior exam. Severe degenerative changes of the right hip. Calcifications about the medial tibial plateau, representing prior injury. Small knee effusion. Degenerative changes of the right knee, incompletely evaluated. Reviewed by: Milagro Luu MD on 01/25/2024 11:21 AM PDT Approved by: Milagro Luu MD on 01/25/2024 11:21 AM PDT Station ID: [email or web address]
== END 2024-01-25 08:24 | disposition home or self-care (01) ==
LOC: DI 08:23
PROVIDERS: ATTEND Orthopaedic Surgery
DX: S72.21XA Displaced subtrochanteric fracture of right femur, initial encounter for closed fracture (principal); M16.11 Unilateral primary osteoarthritis, right hip; M25.461 Effusion, right knee; M17.11 Unilateral primary osteoarthritis, right knee; M47.898 Other spondylosis, sacral and sacrococcygeal region

== ENCOUNTER 2024-02-29 09:31 | Outpatient (CLI) | payer MEDICARE ==
--- NOTE | 2024-02-29 21:24 | XRAY Report ---
PROCEDURE: Knee 3V RT INDICATIONS: BILATERAL KNEE DJD TECHNIQUE: 3 views of the knee(s) were acquired. COMPARISON: X-ray right knee 08/17/2023, 12/09/2022 FINDINGS: Bones: No fractures or dislocations. No suspicious bony lesions. Right: Partially visualized distal femoral fixation. Hardware is intact without evidence of hardware fracture or periprosthetic lucency to suggest loosening. Severe arthritic changes are present in the medial compartment with periarticular osteophytes and subchondral sclerosis. Appearance is stable. Left: Partially visualized distal femoral fixation ирина as well as medial arthroplasty. Medial arthrop lasty demonstrates spacer between the inferior aspect of the arthroplasty hardware and the surgically created depressed medial tibial plateau. Appearance is stable. Moderate to severe lateral compartmen t narrowing with periarticular osteophytes. Appearance is stable. Moderate to severe patellofemoral c ompartment narrowing. Soft tissues: Mild knee joint effusion. No suspicious soft tissue calcifications or masses. IMPRESSION: Unchanged appearance of severe right medial arthritic change as well as moderate to severe lateral le ft arthritic change. Reviewed by: Jordyn Nunez MD on 02/29/2024 9:23 PM PDT Approved by: Jordyn Nunez MD on 02/29/2024 9:23 PM PDT Station ID: [id number]
--- NOTE | 2024-02-29 21:25 | XRAY Report ---
PROCEDURE: Hip w/Pelvis 2-3V RT INDICATIONS: DISPLACED SUBTROCHANTERIC FX R FEMUR TECHNIQUE: 3 views of the hip were acquired. COMPARISON: X-ray hip/femur 01/25/2024 FINDINGS: Bones: Bilateral femoral fixation including femoral neck fixation on the right. Hardware is intact w ithout evidence of hardware fracture or periprosthetic lucency to suggest loosening. Proximal right f emoral fracture fragments demonstrate unchanged anatomic alignment. All hardware is intact. Soft tissues: No suspicious soft tissue calcifications or masses. IMPRESSION: Bilateral femoral fixation with subacute fracture demonstrating stable alignment on the right. Reviewed by: Jordyn Nunez MD on 02/29/2024 9:24 PM PDT Approved by: Jordyn Nunez MD on 02/29/2024 9:24 PM PDT Station ID: [id number]
== END 2024-02-29 09:32 | disposition home or self-care (01) ==
LOC: DI 09:31
PROVIDERS: ATTEND Orthopaedic Surgery
DX: M17.0 Bilateral primary osteoarthritis of knee (principal); S72.21XD Displaced subtrochanteric fracture of right femur, subsequent encounter for closed fracture with routine healing

== ENCOUNTER 2024-03-02 13:24 | Day surgery (SDC) | payer MEDICARE ==
[~2024-03-02 13:24] MED LIST: BUPIVACAINE 0.5%-EPI 1:200000 PF 10 ML VIAL ONE
[2024-03-02] MEDS ORDERED: ceFAZolin 2 GM VIAL ONE (13:30)
[2024-03-02] MEDS ORDERED: ACETAMINOPHEN 500 MG TABLET PO ONE (13:30)
[2024-03-02] MEDS ORDERED: CELECOXIB 100 MG CAPSULE PO ONE (13:30)
[2024-03-02] MEDS: LACTATED RINGERS 1,000 ML IV ONE (13:48)
[2024-03-02 14:04] VITALS: O2SAT 100
--- NOTE | 2024-03-02 14:06 | ANESTHESIA ---
Pre-Anesthesia VS, & Labs - Diagnosis painful hardware - Procedure right femur screw removal Vital Signs: Temp Pulse Resp BP Pulse Ox O2 Flow Rate 36.2 C L 65 19 155/79 H 100 03/02/24 13:49 03/02/24 13:49 03/02/24 13:49 03/02/24 13:49 03/02/24 13:49 Height: 5 ft 1 in Weight (kg): 49.4 kg Body Mass Index: 20.5 BMI Classification: Normal - NPO >8 hours - Is Patient ?: No Home Medications and Allergies Home Medications: Ambulatory Orders Ascorbic Acid [Vitamin C] 500 mg PO DAILY 02/29/24 Cholecalciferol [Vitamin D3] 1,000 unit PO DAILY 02/29/24 Esomeprazole Magnesium 40 mg PO DAILY 02/29/24 Glucosamine Sulfate 500 mg PO DAILY 02/29/24 Meloxicam 15 mg PO DAILY 02/29/24 Solifenacin Succinate [Vesicare] 5 mg PO DAILY 02/29/24 Cyanocobalamin (Vitamin B-12) [Vitamin B-12] 1,000 mcg PO DAILY 08/20/23 Ascorbic Acid [Vitamin C] 500 mg PO DAILY 02/29/24 Cholecalciferol [Vitamin D3] 1,000 unit PO DAILY 02/29/24 Esomeprazole Magnesium 40 mg PO DAILY 02/29/24 Glucosamine Sulfate 500 mg PO DAILY 02/29/24 Meloxicam 15 mg PO DAILY 02/29/24 Solifenacin Succinate [Vesicare] 5 mg PO DAILY 02/29/24 Allergies/Adverse Reactions: Allergies Allergy/AdvReac Type Severity Reaction Status Date / Time bee venom protein (honey bee) Allergy Severe Anaphylaxis Verified 03/02/24 13:54 Anes History & Medical History - Anesthetic History Anesthesia Complications: reports: Post-Operative Nausea/Vomiting - Medical History Cardiovascular: reports: None Pulmonary: reports: None Gastrointestinal: reports: GERD Urinary: reports: Incontinence Neuro: reports: None Musculoskeletal: reports: Osteoarthritis, Osteopenia Endocrine/Autoimmune: reports: None Blood Disorders: reports: None, Anemia Skin: reports: None Smoking Status: Never smoker - Surgical History General: reports: Colonoscopy Gynecologic: reports: Tubal ligation Orthopedic: reports: Knee replacement, Other Exam General: Alert, Oriented x3 Dental: WNL Mouth Opening: Greater than 4 Fingerbreadths Neck Mobility: Normal Mallampati classification: I Thyromental Distance: greater than 6 cm Respiratory: Lungs clear Cardiovascular: Regular rate Plan Anesthesia Type: General, Total IV Consent for Procedure(s) Verified and Reviewed: Yes Code Status: Attempt Resuscitation ASA classification: 2-Mild systemic disease Is this case an emergency?: No
[2024-03-02] MEDS ORDERED: lidocaine 1% 20 ML MDV ONE (14:25)
[2024-03-02] MEDS: BUPIVACAINE 0.25%-EPI 1:200000 PF 30 ML VIAL SUBQ ONE (14:41)
[2024-03-02] MEDS: LIDOCAINE 1% 50 ML MDV SUBQ ONE (14:42)
--- NOTE | 2024-03-02 14:57 | OPERATIVE REPORT ---
Operative Report - General Procedure Date: 03/02/24 Planned Procedure: Removal of the distal interlocking screws right femur Pre-Op Diagnosis: Pain associated with previous internal fixation right distal femur Procedure Performed: Removal of 2 distal interlocking screws right femur Post Op Diagnosis: Same as preoperative diagnosis - Procedure Note Primary Surgeon: Jessee Rahman MD Secondary Surgeon: Francine REYES Anesthesia Provider: Sylwia Castillo CRNA Anesthesia Technique: MAC Estimated Blood Loss (mL): 5 Indications: This is a 78-year-old woman with a history of osteoarthritis right knee, osteoarthritis of the right hip who sustained a fall and a comminuted right subtrochanteric femur fracture just prior to scheduled right total knee replacement. She had open duction internal fixation with a long intramedullary nail, distally locked with screws and a hip screw proximally. This fracture was treated approximately 6 months ago and has healed clinically and radiographically. Her pain is most likely from the screws but also the as sociated knee osteoarthritis. Eventually she will need a total knee replacement and probably a total hip replacement as well on the right sideShe has signed informed consent prior to the procedure Findings: . One of the distal locking screws is slightly prominent medially. The screws are intact and not loose. There is no sign of infection around the screws. Complications: None - Other Other Information/Narrative: The patient was brought to the operating room and placed in supine position. She was given sedation. The right lower extremity was prepped and draped in a sterile manner in the usual fashion using extremity drape and stockinette, sterile Ioban. A 50-50 mixture of 1% Xylocaine and 0.5% Marcaine with epinephrine was infiltrated about the lateral distal thigh just in the area of the knee. This was infiltrated in the subcutaneous tissues and down to bone. Approximately 17 cc of local anesthetic was injected. The C-arm was draped with a sterile drape. The screws were localized. A 5 cm incision was made overlying the screws. The subcutaneous tissue and fascia was split in line with the incision. The screw heads were exposed by subperiosteal dissection and removed with the appropriate screwdriver. Final radiographs were obtained with the C- arm image intensifier showing complete removal of screws, no fracture. Wound was thoroughly irrigated. The wound was closed in layers with 2 0 strata fix for the fascia, 4 0 for the subcutaneous tissue and subcuticular closure with Dermabond. Mepilex dressing was applied as well as an Tian wrap around the right knee. The patient received 2 g of Ancef intravenously and tolerated procedure well. A physician drafter assistant was utilized to help with the prepping and draping, retraction of tissues, wound closure and dressing application.
[2024-03-02] MEDS: LACTATED RINGERS 600 ML IV ONE ×2 (15:07→15:38)
[2024-03-02] MEDS ORDERED: ACETAMINOPHEN 500 MG TABLET PO PRN (15:09)
[2024-03-02] MEDS ORDERED: oxyCODONE 5 MG TABLET PO PRN (15:09)
[2024-03-02] MEDS ORDERED: HYDROmorphone 0.5 MG/0.5 ML SYRINGE ONE (15:18)
[2024-03-02] MEDS: HYDROmorphone 0.5 MG/0.5 ML SYRINGE IVP PRN (15:19)
[2024-03-02 15:31] VITALS: BP 132/74
--- NOTE | 2024-03-02 15:40 | ANESTHESIA POST OP EVALUATION ---
Anesthesia Post Eval - Post Anesthesia Eval Vitals: Last Vital Signs Temp 36.0 C L 03/02/24 15:25 Pulse 56 L 03/02/24 15:25 Resp 12 03/02/24 15:25 BP 132/74 H 03/02/24 15:25 Pulse Ox 100 03/02/24 15:25 O2 Flow Rate CV Function Including HR & BP: Stable Pain Control: Satisfactory Nausea & Vomiting: Negative Mental Status: Baseline Respiratory Status: Airway Patent Hydration Status: Satisfactory Anesthesia Complications: None
--- NOTE | 2024-03-02 20:49 | XRAY Report ---
PROCEDURE: OR C-Arm Procedure INDICATIONS: RIGHT FEMUR SCREW REMOVAL FLUORO TIME: 000.1 TECHNIQUE: Single intraoperative view of the distal femur COMPARISON: 01/25/2024. FINDINGS: Single intraoperative view of the distal femur showing removal of screws. Partially visualized intram edullary ирина in place IMPRESSION: Single intraoperative view of the distal femur status post removal of distal screws. Intramedullary r od is partially visualized. Reviewed by: Goldy Haile MD on 03/02/2024 8:48 PM PDT Approved by: Goldy Haile MD on 03/02/2024 8:48 PM PDT Station ID: [id number]
== END 2024-03-02 13:25 | disposition home or self-care (01) ==
LOC: SDS 13:24
PROVIDERS: ATTEND Orthopaedic Surgery
DX: T84.84XA Pain due to internal orthopedic prosthetic devices, implants and grafts, initial encounter (principal); M17.11 Unilateral primary osteoarthritis, right knee; M16.11 Unilateral primary osteoarthritis, right hip; M79.651 Pain in right thigh
CPT/HCPCS: 20680; J1170; J7120

== ENCOUNTER 2024-04-18 08:41 | Outpatient (CLI) | payer MEDICARE ==
[2024-04-18 12:33] LABS: BASOPHILS # (AUTO) 0.1 10^3/uL (0.0-0.1); EOSINOPHILS # (AUTO) 0.3 10^3/uL (0.0-0.7); EOSINOPHILS % (AUTO) 3.7 %; HCT - HEMATOCRIT 33.6 % (37.0-47.0); HGB - HEMOGLOBIN 11.1 g/dL (12.0-16.0); LYMPHOCYTES # (AUTO) 1.2 10^3/uL (1.5-3.5); MEAN CORPUSCULAR HEMOGLOBIN 32.2 pg (27.0-31.0); MEAN CORPUSCULAR VOLUME 97.4 fL (81.0-99.0); MEAN PLATELET VOLUME 9.1 fL (7.9-10.8); MONOCYTES # (AUTO) 0.7 10^3/uL (0.0-1.0); NEUTROPHILS # (AUTO) 4.6 10^3/uL (1.5-6.6); PLT - PLATELET COUNT 508 10^3/uL (130-450); RED BLOOD COUNT 3.45 10^6/uL (4.20-5.40); RED CELL DISTRIBUTION WIDTH 13.5 % (12.0-15.0); WHITE BLOOD COUNT 6.8 x10^3/uL (4.8-10.8)
[2024-04-18 12:54] LABS: THYROID STIMULATING HORMONE 2.31 uIU/mL (0.34-5.60)
[2024-04-18 12:55] LABS: ALBUMIN 3.9 g/dL (3.2-5.5); ALKALINE PHOSPHATASE 87 IU/L (42-121); ALT ALANINE AMINOTRANSFERASE 9 IU/L (10-60); AST ASPARTATE AMINOTRANSFERASE 13 IU/L (10-42); BILIRUBIN,TOTAL 0.4 mg/dL (0.2-1.0); BUN - BLOOD UREA NITROGEN 21 mg/dL (6-20); CALCIUM 9.2 mg/dL (8.5-10.3); CARBON DIOXIDE - CO2 28 mmol/L (21-32); CHLORIDE 103 mmol/L (101-111); CHOL/HDL RATIO 2.9 (<4.4); CHOLESTEROL 169 mg/dL; GFR - MDRD 54 (>89); GLUCOSE 82 mg/dL (74-104); HDL CHOLESTEROL 59 mg/dL; LDL CHOLESTEROL,CALCULATED 88 mg/dL; LDL/HDL RATIO 1.5 (<4.4); POTASSIUM 4.5 mmol/L (3.5-4.5); SODIUM 138 mmol/L (135-145); TOTAL PROTEIN 5.9 g/dL (6.4-8.9); TRIGLYCERIDES 112 mg/dL; VLDL CHOLESTEROL 22 mg/dL
== END 2024-04-18 08:42 | disposition home or self-care (01) ==
LOC: LAB.N 08:41
PROVIDERS: ATTEND Family Medicine
DX: D62 Acute posthemorrhagic anemia (principal); M81.8 Other osteoporosis without current pathological fracture; S72.21XD Displaced subtrochanteric fracture of right femur, subsequent encounter for closed fracture with routine healing; K21.9 Gastro-esophageal reflux disease without esophagitis
CPT/HCPCS: 36415; 80053; 80061; 83721; 84443; 85025